=== PATIENT | male | born 1955 | race Caucasian/White ===

== ENCOUNTER 2019-12-08 17:10 | Emergency (ER) | payer MEDICARE, BC, MEDICAID, SELFPAY ==
[2019-12-08] VITALS (9 sets, daily range): BP systolic 141–179; BP diastolic 60–80; PULSE 79–87; RESP 14–18; TEMP 36.7; O2SAT 92–96; BMI 32.1
--- NOTE | 2019-12-08 17:20 | XRR_ITS ---
PROCEDURE INFORMATION: Exam: XR Chest, 1 View Exam date and time: 12/08/2019 5:50 PM Age: 64 years old Clinical indication: Dyspnea TECHNIQUE: Imaging protocol: XR of the chest Views: 1 view. COMPARISON: CR Chest 1 [place] [id number] 08/04/2018 11:06 AM FINDINGS: Lungs: There is bilateral upper lobe pulmonary fibrotic changes stable since prior examination. Low lung volumes are seen. The lungs are otherwise clear Pleural space: Unremarkable. No pleural effusion. No pneumothorax. Heart/Mediastinum: Unremarkable. No cardiomegaly. Bones/joints: There is widening between the 6th and 7th posterior rib on the right stable since prior Other findings: Comparison to prior examination similar findings is seen XR/XR chest 1V portable [id number] IMPRESSION: 1. Stable for bilateral upper lobe pulmonary fibrotic changes 2. Low lung volumes 3. Negative for acute abnormality. . 4. Right rib deformity stable since prior
[2019-12-08 17:31] LABS: Basophils # 0.1 10^3/uL (0.0-0.1); Basophils % 0.5 %; Eosinophils # 0.4 10^3/uL (0.0-0.8); Eosinophils % 3.2 %; Hematocrit 45.8 % (42.0-52.0); Hemoglobin 14.7 g/dL (11.7-16.6); Lymphocytes # 2.1 10^3/uL (0.8-4.8); Lymphocytes % 19.5 %; Mean Corpuscular HGB Conc 32.1 g/dL (30.0-36.0); Mean Corpuscular Hemoglobin 27.8 pg (28.0-34.0); Mean Corpuscular Volume 86.7 fL (80-94); Monocytes % 8.9 %; Neutrophils # 7.35 10^3/uL (1.8-7.7); Neutrophils % 67.5 %; Nucleated Red Blood Cells % 0 %; Platelet Count 220 10^3/cmm (130-400); Red Blood Count 5.28 10^6/uL (4.1-5.3); Red Cell Distribution Width 14.2 % (12.1-15.1); White Blood Count 10.9 10^3/uL (4.0-10.0)
[2019-12-08 17:45] LABS: ABG PH Result 7.43 (7.35-7.45); Arterial Blood Gas Hematocrit 46.4 % (42-52); Base Excess ABG 1.1 mmol/L (-2.0-2.0); Blood Gas Allen Test Pos; Blood Gas Sample Site Radial, left; Blood Gas Sample Type Arterial; HCO3 ABG 25.3 mmol/L (22-26); Oxygen Device NC; PO2 ABG 66.9 mmHg (80.0-100.0)
[2019-12-08 18:38] LABS: Alanine Aminotransferase 27 U/L (0-41); Alkaline Phosphatase 80 IU/L (40-130); Anion Gap 14.3 (5-19); Aspartate Amino Transferase 24 U/L (0-40); Blood Urea Nitrogen 12 mg/dL (8-23); Calcium 8.8 mg/dL (8.5-10.5); Carbon Dioxide 26 mmol/L (22-29); Chloride 100 mmol/L (98-107); Globulin 3.7 g/dL (1.3-4.6); Glomerular Filtration Rate 113.2 mL/min (90-130); Glucose 176 mg/dL (65-115); Osmolality Calculated 282 mOsm/kg (285-295); Potassium 4.3 mmol/L (3.5-5.1); Procalcitonin 0.05 ng/mL (0-0.5); Sodium 136 mmol/L (136-145); Total Bilirubin 0.2 mg/dL (0.15-1.2); Total Protein 7.7 g/dL (6.6-8.7)
--- NOTE | 2019-12-08 18:40 | W.ED.SOB ---
HPI - SOB/Dyspnea General: Chief Complaint: Shortness of Breath/Dyspnea Stated Complaint: COPD EXACERBATION Time Seen by Provider: 12/08/19 17:19 History of Present Illness: HPI Narrative: This patient is a 64-year-old male presenting with shortness of breath. He reports a history of COPD and has had part of his left lung removed. He also has diabetes and A. fib. He said for the past week he has been having episodes of shortness of breath. These are unprovoked and unassociated with other symptoms. He does get lightheaded but no chest pain. He does not feel any palpitations. He has a chronic cough which has been somewhat worse over the past week. No fevers. He denies any exposure to COVID. MD elicited complaint: shortness of breath Pertinent past history: COPD Onset (ago): week(s) (1) Timing: intermittent Severity: severe Exacerbating factors: nothing Relieving factors: nothing Known history of: COPD Associated symptoms: Deny abdominal pain, chest pain, fever(s), nausea or vomiting Review of Systems General: Reports: 10 or more systems reviewed and unremarkable except in HPI and below Const: Reports: fatigue and malaise; Denies: fever(s) or chills Eyes: Denies: change in vision ENMT: Denies: odynophagia Card: Denies: chest pain or swelling of feet/ankles Resp: Reports: dyspnea and productive cough; Denies: non-productive cough GI: Denies: abdominal pain, nausea or vomiting : Denies: flank pain Musc: Denies: neck pain or back pain Skin/Breast: Denies: rash Neuro: Denies: headache(s), numbness in extremities or weakness in extremities Reji/Lymph: Denies: easy bruising or easy bleeding PFS ED PFSH: Medical History Anticoagulation adequate with anticoagulant therapy Pradaxa Atrial fibrillation COPD (chronic obstructive pulmonary disease) Diabetes HTN (hypertension) Mass of upper lobe of left lung Obesity Oxygen dependent Tobacco abuse, in remission Surgical History H/O pneumonectomy Family History Mother Parkinson disease Father Cancer Social History Smoking and tobacco status: former smoker Alcohol intake: never Household members: spouse Marital status: service: No Current occupational status: disabled Physical Exam Const: COMMON NORMALS: no acute distress, patient oriented x3, no limitations and alert GENERAL APPEARANCE: cooperative and comfortable HENMT: HEAD & SCALP: normal to inspection FACE & SINUS: normal facial exam Eye: GENERAL EYE: appearance normal, both eyes and all related structures Neck/C-Spine: COMMON NORMALS: supple, no meningeal signs and no JVD Chest: COMMONS NORMALS: normal inspection of the chest Resp: COMMON NORMALS: normal respiratory effort and No use of accessory muscles AUSCULTATION: diminished lung sounds (Mildly, diffusely) Cardio: COMMON NORMALS: no JVD, regular rate, regular rhythm and No murmurs present (Cardio) RATE: regular rate RHYTHM: regular rhythm GI: COMMON NORMALS: Normal to inspection, nondistended, normoactive bowel sounds present, Soft to palpation and non-tender INSPECTION: Yes normal to inspection AUSCULTATION: Yes normoactive bowel sounds PALPATION: Yes Soft to palpation Back/Pelvis: COMMON NORMALS: thoracic and lumbar spine normal to inspection Extremity: COMMON NORMALS: normal to inspection Neuro: COMMON NORMALS: patient oriented x3, moves all extremities, no focal motor deficits and no sensory deficits noted SENSORIUM/ORIENTATION: Yes alert MENINGEAL SIGNS: Yes no meningeal signs Psych: COMMON NORMALS: mental status grossly normal, cooperative and normal affect Skin: COMMON NORMALS: no rashes or lesions noted and turgor normal GENERAL SKIN EXAM: no rashes or lesions noted and turgor normal Course ED course: Patient presented with episodic shortness of breath. He is completely asymptomatic on my evaluation. He did have some chest tightness with the symptoms. He does not have any significant wheezing on his lung exam initially. He was evaluated for COPD exacerbation or CHF. Clinically doubt pulmonary embolism. He remained stable and comfortable throughout the ED stay. He was given a nebulizer in the evening as he said that was his normal time to take 1 at home. His work-up was benign and as he was asymptomatic he was discharged back home. Vital Signs: Vital signs: Vital Signs Temperature 98.1 F 12/08/19 17:21 Pulse Rate 88 12/09/19 00:27 Respiratory Rate 18 12/09/19 00:27 Blood Pressure 141/70 12/09/19 00:27 Pulse Oximetry 64 L 12/09/19 00:27 MDM - SOB/Dyspnea Lab Data: Labs: Lab Results 12/08/19 12/08/19 12/08/19 Range/Units 16:21 16:21 17:34 WBC 10.9 H (4.0-10.0) 10^3/ uL RBC 5.28 (4.1-5.3) 10^6/u L Hgb 14.7 (11.7-16.6) g/dL Hct 45.8 (42.0-52.0) % MCV 86.7 (80-94) fL MCH 27.8 L (28.0-34.0) pg MCHC 32.1 (30.0-36.0) g/dL RDW 14.2 (12.1-15.1) % Plt Count 220 (130-400) 10^3/c mm MPV 12.0 H (7.4-10.4) fL Neut % (Auto) 67.5 % Lymph % (Auto) 19.5 % [place] % (Auto) 8.9 % Eos % (Auto) 3.2 % Baso % (Auto) 0.5 % Neut # (Auto) 7.35 (1.8-7.7) 10^3/u L Lymph # (Auto) 2.1 (0.8-4.8) 10^3/u L [place] # (Auto) 1.0 H (0.2-0.9) 10^3/u L Eos # (Auto) 0.4 (0.0-0.8) 10^3/u L Baso # (Auto) 0.1 (0.0-0.1) 10^3/u L Nucleated RBC % (a uto) 0 % Nucleated RBCs # 0.0 /100WBC Specimen Type Arterial Sample Site Radial, left ABG pH 7.43 (7.35-7.45) ABG pCO2 38.0 (35-45) mmHg ABG pO2 66.9 L (80.0-100.0) mmH g ABG HCO3 25.3 (22-26) mmol/L ABG Base Excess 1.1 (-2.0-2.0) mmol/ L Bob Test Pos Hematocrit 46.4 (42-52) % O2 Delivery Device Nc O2 Liters/Min 3.0 % FiO2 32.0 % Security Intelligence Analyst ID cak Sodium 136 (136-145) mmol/L Potassium 4.3 (3.5-5.1) mmol/L Chloride 100 (98-107) mmol/L Carbon Dioxide 26 (22-29) mmol/L Anion Gap 14.3 (5-19) BUN 12 (8-23) mg/dL Creatinine 0.7 (0.7-1.2) mg/dL GFR Calculation 113.2 (90-130) mL/min Glucose 176 H (65-115) mg/dL Calculated Osmolal ity 282 L (285-295) mOsm/k g Calcium 8.8 (8.5-10.5) mg/dL Total Bilirubin 0.2 (0.15-1.2) mg/dL AST 24 (0-40) U/L ALT 27 (0-41) U/L Alkaline Phosphata se 80 (40-130) IU/L Troponin T Baselin e (0-15) ng/L Troponin T 120 Min [place] (0-15) ng/L Delta Troponin T (0-10) ABS# Total Protein 7.7 (6.6-8.7) g/dL Albumin 4.0 (3.5-5.2) g/dL Globulin 3.7 (1.3-4.6) g/dL Procalcitonin 0.05 (0-0.5) ng/mL 12/08/19 12/08/19 Range/Units 20:37 22:48 WBC (4.0-10.0) 10^3/ uL RBC (4.1-5.3) 10^6/u L Hgb (11.7-16.6) g/dL Hct (42.0-52.0) % MCV (80-94) fL MCH (28.0-34.0) pg MCHC (30.0-36.0) g/dL RDW (12.1-15.1) % Plt Count (130-400) 10^3/c mm MPV (7.4-10.4) fL Neut % (Auto) % Lymph % (Auto) % [place] % (Auto) % Eos % (Auto) % Baso % (Auto) % Neut # (Auto) (1.8-7.7) 10^3/u L Lymph # (Auto) (0.8-4.8) 10^3/u L [place] # (Auto) (0.2-0.9) 10^3/u L Eos # (Auto) (0.0-0.8) 10^3/u L Baso # (Auto) (0.0-0.1) 10^3/u L Nucleated RBC % (a uto) % Nucleated RBCs # /100WBC Specimen Type Sample Site ABG pH (7.35-7.45) ABG pCO2 (35-45) mmHg ABG pO2 (80.0-100.0) mmH g ABG HCO3 (22-26) mmol/L ABG Base Excess (-2.0-2.0) mmol/ L Bob Test Hematocrit (42-52) % O2 Delivery Device O2 Liters/Min % FiO2 % Security Intelligence Analyst ID Sodium (136-145) mmol/L Potassium (3.5-5.1) mmol/L Chloride (98-107) mmol/L Carbon Dioxide (22-29) mmol/L Anion Gap (5-19) BUN (8-23) mg/dL Creatinine (0.7-1.2) mg/dL GFR Calculation (90-130) mL/min Glucose (65-115) mg/dL Calculated Osmolal ity (285-295) mOsm/k g Calcium (8.5-10.5) mg/dL Total Bilirubin (0.15-1.2) mg/dL AST (0-40) U/L ALT (0-41) U/L Alkaline Phosphata se (40-130) IU/L Troponin T Baselin e 13 (0-15) ng/L Troponin T 120 Min [place] 14.23 (0-15) ng/L Delta Troponin T 1.23 (0-10) ABS# Total Protein (6.6-8.7) g/dL Albumin (3.5-5.2) g/dL Globulin (1.3-4.6) g/dL Procalcitonin (0-0.5) ng/mL Discharge Plan Discharge Patient Disposition: Home Clinical Impression: COPD (chronic obstructive pulmonary disease) Qualifiers: COPD type: unspecified COPD Qualified Code(s): J44.9 - Chronic obstructive pulmonary disease, unspecified Condition: Stable Prescriptions: No Action diltiazem HCl 120 mg capsule,extended release 24hr 120 mg PO DAILY RF: 0 ipratropium-albuterol 0.5 mg-3 mg(2.5 mg base)/3 mL solution for nebulization 3 ml INHALATION Q6H PRNRF: 0 omeprazole 20 mg capsule,delayed release(DR/EC) 20 mg PO DAILY RF: 0 cetirizine 10 mg tablet 10 mg PO DAILY PRNRF: 0 albuterol sulfate [ProAir HFA] 90 mcg/actuation HFA aerosol inhaler 2 puff INHALATION Q6H PRNRF: 0 fluticasone propion-salmeterol [Advair Diskus] 250-50 mcg/dose blister with device 1 inh INHALATION Q12H RF: 0 aspirin [Aspir-81] 81 mg tablet,delayed release (DR/EC) 81 mg PO DAILY RF: 0 Pradaxa 150 mg capsule 150 mg PO BID RF: 0 glipizide 5 mg tablet 5 mg PO DAILY RF: 0 Lantus U-100 Insulin 100 unit/mL solution See Rx Instructions SUBCUT DAILY RF: 0 alprazolam 0.25 mg tablet 0.25 mg PO TID PRNRF: 0 Discharge Orders: Discharge Order (Routine); Ordered 12/08/19 Ordered By: Marjorie Jamil Referrals: Chanelle Perez, MARKET RESEARCH SENIOR PROJECT MANAGER-C [Primary Care Provider] - Discharge Diet: Usual diet Discharge Activity: Resume usual activity Patient Instructions: Chronic Obstructive Pulmonary Disease (ED) Activity Restrictions/Additional Instructions: Continue your regular medications and breathing treatments. Contact your primary care provider or development writer for further evaluation if you continue to have severe shortness of breath. Return to the emergency department if new or worse symptoms occur. Discharge Date/Time: 12/09/19 00:28 Coding Level of Care Code ED Industrial Economics Teacher for Lizbet Fwluanne Exam Comprehensive
--- NOTE | 2019-12-08 19:01 | PC.NURSE ---
report received from DG Simmons and care transferred to DG Juan
--- NOTE | 2019-12-08 20:07 | ECG_ITS ---
[facility] Test Date: 2019-12-08 Pat Name: Gamaliel Sigala Department: Room: Gender: Male Technical System Analyst: : 1955 Requested By: Marjorie Hernadnez Order Number: [id number] Juaquin MD: Scotty Richter M.D. Measurements Intervals [place] Rate: 79 P: 76 DC: 184 QRS: 48 QRSD: 102 T: 70 QT: 367 QTc: 422 Interpretive Statements SINUS RHYTHM Compared to ECG 12/08/2019 17:32:43 No significant changes Electronically Signed On 12-08-2019 20:13:58 CDT by Scotty Richter M.D. [id number]
[2019-12-08] MEDS: ipratropium-albuterol 3 mL Neb INHALATION (20:12)
[2019-12-08 21:10] LABS: Troponin(5th) Baseline 13 ng/L (0-15)
--- NOTE | 2019-12-08 22:07 | ECG_ITS ---
[facility] Test Date: 2019-12-08 Pat Name: Gamaliel Sigala Department: Room: Gender: Male Solid Waste Collector: : 1955 Requested By: Marjorie Hernandez Order Number: [id number] Juaquin MD: Scotty Richter M.D. Measurements Intervals [place] Rate: 84 P: 78 [place]: 183 QRS: 68 QRSD: 105 T: 66 QT: 363 QTc: 431 Interpretive Statements SINUS RHYTHM Compared to ECG 08/04/2018 18:31:59 T-wave abnormality no longer present Electronically Signed On 12-08-2019 20:16:42 CDT by Scotty Richter M.D. [email or web address] Groupuniversity of mississippi medical centerLetsBuy.comacmc healthcare systemHonglin Technology Group Limited/store/Om/[id number]
[2019-12-08 23:26] LABS: Troponin 5 2HR 14.23 ng/L (0-15); Troponin 5 2HR Delta 1.23 ABS# (0-10)
[2019-12-09 00:27] VITALS: BP 141/70; PULSE 88; RESP 18; O2SAT 64
== END 2019-12-09 00:28 | disposition home or self-care (01) ==
PROVIDERS: Emergency Provider Emergency Medicine; PCP Nurse Practitioner Family
DX: J44.9 Chronic obstructive pulmonary disease, unspecified (principal); Z79.82 Long term (current) use of aspirin; Z79.4 Long term (current) use of insulin; I48.91 Unspecified atrial fibrillation; E11.9 Type 2 diabetes mellitus without complications; I10 Essential (primary) hypertension; Z87.891 Personal history of nicotine dependence
CPT/HCPCS: 12345; 36415; 36600; 71045; 80053; 82803; 84145; 84484; 85025; 93005; 94640; 99284

== ENCOUNTER 2020-04-23 18:35 | Emergency (ER) | payer MEDICARE, MEDICAID, SELFPAY ==
[2020-04-23] VITALS (15 sets, daily range): BP systolic 120–168; BP diastolic 66–97; PULSE 80–88; RESP 13–25; TEMP 36.6–37.1; O2SAT 93–96; BMI 31.4
--- NOTE | 2020-04-23 18:42 | ECG_ITS ---
[facility] Test Date: 2020-04-23 Pat Name: Gamaliel Sigala Department: Room: Gender: Male Human Services Program Specialist: : 1955 Requested By: Toyin Roque Order Number: [id number] Juaquin MD: Ave Adams M.D. Measurements Intervals [place] Rate: 86 P: 72 OR: 185 QRS: 50 QRSD: 105 T: 66 QT: 365 QTc: 438 Interpretive Statements SINUS RHYTHM Compared to ECG 12/08/2019 20:21:06 No significant changes Electronically Signed On 04-24-2020 6:42:[address]ER[address]Y [address] Adams M.D. [email or web address]/[id number] f
--- NOTE | 2020-04-23 18:42 | XR_ITS ---
WS: [id number] XR chest 1V portable [id number] REASON FOR EXAM: cp FINDINGS: The chest is unchanged compared to 12/08/2019. There is extensive cystic change and irregular fibrotic change in the upper lungs with upward retraction of the hilar regions. Prominent area of chronic ate lectasis and scarring in the left lung apex. There is elevation of the right hemidiaphragm. No acute infiltrate identified. Mild tortuosity thoracic aorta without significant dilatation. No cardiac enlargement. Degenerative arthropathy in both shoulder joints most notably the right. Moderate degenerative spondy losis in the mid and lower thoracic spine. XR/XR chest 1V portable [id number] IMPRESSION: Stable abnormal chest with no acute abnormality identified.
--- NOTE | 2020-04-23 18:44 | W.ED.CHESTPA ---
HPI - Chest Pain General: Chief Complaint: Shortness of Breath/Dyspnea Stated Complaint: SOB, DIZZY Time Seen by Provider: 04/23/20 18:37 Source: patient and EMS Mode of arrival: EMS Limitations: no limitations History of Present Illness: HPI narrative: 65-year-old male has a history of chronic COPD. He states he has been having some sharp and pressure type chest pain in the center of his chest and left chest since Wednesday. He states is been constant nature. Denies any shortness of breath. He is always on 2 L. He denies any increasing cough or fever. Denies any worsening or improving factors. He denies any nausea or vomiting. Associated symptoms: Deny abdominal pain, dyspnea, fever(s), nausea or vomiting Review of Systems Const: Denies: fever(s), chills, body aches or change in appetite Eyes: Denies: blurry vision or eye discomfort ENMT: Denies: throat pain or dental pain Card: Reports: chest pain Resp: Denies: dyspnea GI: Denies: abdominal pain, nausea, vomiting or diarrhea : Denies: dysuria Musc: Denies: neck pain or back pain Skin/Breast: Denies: rash Neuro: Denies: headache(s) Psych: Denies: depression Reji/Lymph: Denies: easy bruising All/Imm: Denies: urticaria PFSH ED PFSH: Medical History (Updated 04/23/20 @ 21:48 by Toyin Roque MD) Anticoagulation adequate with anticoagulant therapy Pradaxa Atrial fibrillation COPD (chronic obstructive pulmonary disease) Diabetes HTN (hypertension) Mass of upper lobe of left lung Obesity Oxygen dependent Tobacco abuse, in remission Surgical History H/O pneumonectomy Family History Mother Parkinson disease Father Cancer Social History Smoking and tobacco status: former smoker Alcohol intake: never Household members: spouse Marital status: service: No Current occupational status: disabled Physical Exam Const: COMMON NORMALS: no acute distress, patient oriented x3 and healthy appearing HENMT: COMMON NORMALS: normocephalic and atraumatic HEAD & SCALP: normocephalic and atraumatic Eye: COMMON NORMALS: Equal, round and reactive pupils present and EOMs intact bilaterally PUPIL: Yes Equal, round and reactive pupils present Neck/C-Spine: COMMON NORMALS: full ROM and supple Chest: COMMONS NORMALS: normal inspection of the chest OTHER: tender over left chest Resp: COMMON NORMALS: normal respiratory effort, No retractions, No use of accessory muscles and clear to auscultation bilaterally AUSCULTATION: clear to auscultation bilaterally Cardio: COMMON NORMALS: regular rate, regular rhythm and No murmurs present (Cardio) RATE: regular rate RHYTHM: regular rhythm GI: COMMON NORMALS: Normal to inspection, nondistended, normoactive bowel sounds present, Soft to palpation, non-tender and no masses PALPATION: Yes Soft to palpation Extremity: COMMON NORMALS: normal to inspection and full ROM Neuro: COMMON NORMALS: patient oriented x3, moves all extremities and no focal motor deficits Psych: COMMON NORMALS: mental status grossly normal, Normal thought process present and cooperative THOUGHT PROCESS: Normal thought process present Skin: COMMON NORMALS: no rashes or lesions noted and no wounds GENERAL SKIN EXAM: no rashes or lesions noted Course Vital Signs: Vital signs: Vital Signs Temperature 98.7 F 04/23/20 18:45 Pulse Rate 81 04/23/20 21:35 Respiratory Rate 17 04/23/20 21:35 Blood Pressure 120/66 04/23/20 21:35 Pulse Oximetry 95 04/23/20 21:35 MDM - Chest Pain MDM Narrative: Medical decision making narrative: Patient presents with chest pain is atypical in nature. X-ray along with both EKGs and troponins are all normal. Patient's pain is been improved here. He is not requiring any more oxygen. He has no signs of pulmonary embolism or dissection. 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 He is to return if worsening. He understands agrees to plan. Lab Data: Labs: Lab Results 04/23/20 04/23/20 04/23/20 Range/Units 19:20 19:20 19:20 WBC 11.8 H (4.0-10.0) 10^3/ uL RBC 5.28 (4.1-5.3) 10^6/u L Hgb 14.7 (11.7-16.6) g/dL Hct 44.9 (42.0-52.0) % MCV 85.0 (80-94) fL MCH 27.8 L (28.0-34.0) pg MCHC 32.7 (30.0-36.0) g/dL RDW 14.1 (12.1-15.1) % Plt Count 228 (130-400) 10^3/c mm MPV 11.4 H (7.4-10.4) fL Neut % (Auto) 74.1 % Lymph % (Auto) 15.3 % [place] % (Auto) 7.5 % Eos % (Auto) 2.1 % Baso % (Auto) 0.5 % Neut # (Auto) 8.75 H (1.8-7.7) 10^3/u L Lymph # (Auto) 1.8 (0.8-4.8) 10^3/u L [place] # (Auto) 0.9 (0.2-0.9) 10^3/u L Eos # (Auto) 0.3 (0.0-0.8) 10^3/u L Baso # (Auto) 0.1 (0.0-0.1) 10^3/u L Nucleated RBC % (a uto) 0 % Nucleated RBCs # 0.0 /100WBC Sodium 134 L (136-145) mmol/L Potassium 4.4 (3.5-5.1) mmol/L Chloride 97 L (98-107) mmol/L Carbon Dioxide 27 (22-29) mmol/L Anion Gap 14.4 (5-19) BUN 15 (8-23) mg/dL Creatinine 0.5 L (0.7-1.2) mg/dL GFR Calculation 166.4 H (90-130) mL/min Glucose 226 H (65-115) mg/dL Calculated Osmolal ity 286 (285-295) mOsm/k g Calcium 9.1 (8.5-10.5) mg/dL Total Bilirubin 0.3 (0.15-1.2) mg/dL AST 27 (0-40) U/L ALT 32 (0-41) U/L Alkaline Phosphata se 85 (40-130) IU/L Troponin T Baselin e 10 (0-15) ng/L Troponin T 120 Min [place] (0-15) ng/L Delta Troponin T (0-10) ABS# Total Protein 7.5 (6.6-8.7) g/dL Albumin 3.8 (3.5-5.2) g/dL Globulin 3.7 (1.3-4.6) g/dL 04/23/20 Range/Units 21:04 WBC (4.0-10.0) 10^3/ uL RBC (4.1-5.3) 10^6/u L Hgb (11.7-16.6) g/dL Hct (42.0-52.0) % MCV (80-94) fL MCH (28.0-34.0) pg MCHC (30.0-36.0) g/dL RDW (12.1-15.1) % Plt Count (130-400) 10^3/c mm MPV (7.4-10.4) fL Neut % (Auto) % Lymph % (Auto) % [place] % (Auto) % Eos % (Auto) % Baso % (Auto) % Neut # (Auto) (1.8-7.7) 10^3/u L Lymph # (Auto) (0.8-4.8) 10^3/u L [place] # (Auto) (0.2-0.9) 10^3/u L Eos # (Auto) (0.0-0.8) 10^3/u L Baso # (Auto) (0.0-0.1) 10^3/u L Nucleated RBC % (a uto) % Nucleated RBCs # /100WBC Sodium (136-145) mmol/L Potassium (3.5-5.1) mmol/L Chloride (98-107) mmol/L Carbon Dioxide (22-29) mmol/L Anion Gap (5-19) BUN (8-23) mg/dL Creatinine (0.7-1.2) mg/dL GFR Calculation (90-130) mL/min Glucose (65-115) mg/dL Calculated Osmolal ity (285-295) mOsm/k g Calcium (8.5-10.5) mg/dL Total Bilirubin (0.15-1.2) mg/dL AST (0-40) U/L ALT (0-41) U/L Alkaline Phosphata se (40-130) IU/L Troponin T Baselin e (0-15) ng/L Troponin T 120 Min [place] 11.68 (0-15) ng/L Delta Troponin T 1.68 (0-10) ABS# Total Protein (6.6-8.7) g/dL Albumin (3.5-5.2) g/dL Globulin (1.3-4.6) g/dL Imaging Data^: CXR: Attestation: I personally reviewed and interpreted this imaging study as follows: My impression: No acute abnormality EKG Data^: EKG 1: Attestation: I personally reviewed and interpreted this EKG as follows: EKG interpretation date: 04/23/20 EKG interpretation time: 18:50 Interpretation: nsr hr [address] or t wave abnormalities qrs 105 qtc 408 EKG 2: Attestation: I personally reviewed and interpreted this EKG as follows: EKG interpretation date: 04/23/20 EKG interpretation time: 20:49 Interpretation: nsr hr [address] or t wave abnormalities qrs 102 qtc 407 Discharge Plan Discharge Patient Disposition: Home Clinical Impression: Chest pain Condition: Stable Prescriptions: No Action diltiazem HCl 120 mg capsule,extended release 24hr 120 mg PO DAILY RF: 0 ipratropium-albuterol 0.5 mg-3 mg(2.5 mg base)/3 mL solution for nebulization 3 ml INHALATION Q6H PRNRF: 0 omeprazole 20 mg capsule,delayed release(DR/EC) 20 mg PO DAILY RF: 0 cetirizine 10 mg tablet 10 mg PO DAILY PRNRF: 0 albuterol sulfate [ProAir HFA] 90 mcg/actuation HFA aerosol inhaler 2 puff INHALATION Q6H PRNRF: 0 fluticasone propion-salmeterol [Advair Diskus] 250-50 mcg/dose blister with device 1 inh INHALATION Q12H RF: 0 aspirin [Aspir-81] 81 mg tablet,delayed release (DR/EC) 81 mg PO DAILY RF: 0 Pradaxa 150 mg capsule 150 mg PO BID RF: 0 glipizide 5 mg tablet 5 mg PO DAILY RF: 0 Lantus U-100 Insulin 100 unit/mL solution See Rx Instructions SUBCUT DAILY RF: 0 alprazolam 0.25 mg tablet 0.25 mg PO TID PRNRF: 0 Discharge Orders: Discharge ED (Routine); Ordered 04/23/20 Ordered By: Toyin Roque Referrals: Chanelle Perez FNP-C [Primary Care Provider] - 1-3 days Discharge Diet: Advance as tolerated Discharge Activity: Resume usual activity Patient Instructions: Chest Pain (ED) Coding Level of Care Code ED Electronic Engineering Technician for Chg Fwd Exam Comprehensive
--- NOTE | 2020-04-23 19:38 | PC.NURSE ---
Received pt from Previous RN. Pt just arrived
[2020-04-23 19:53] LABS: Basophils # 0.1 10^3/uL (0.0-0.1); Basophils % 0.5 %; Eosinophils # 0.3 10^3/uL (0.0-0.8); Eosinophils % 2.1 %; Hematocrit 44.9 % (42.0-52.0); Hemoglobin 14.7 g/dL (11.7-16.6); Lymphocytes # 1.8 10^3/uL (0.8-4.8); Lymphocytes % 15.3 %; Mean Corpuscular HGB Conc 32.7 g/dL (30.0-36.0); Mean Corpuscular Hemoglobin 27.8 pg (28.0-34.0); Mean Platelet Volume 11.4 fL (7.4-10.4); Monocytes # 0.9 10^3/uL (0.2-0.9); Monocytes % 7.5 %; Neutrophils # 8.75 10^3/uL (1.8-7.7); Neutrophils % 74.1 %; Nucleated Red Blood Cells % 0 %; Platelet Count 228 10^3/cmm (130-400); Red Blood Count 5.28 10^6/uL (4.1-5.3); Red Cell Distribution Width 14.1 % (12.1-15.1); White Blood Count 11.8 10^3/uL (4.0-10.0)
[2020-04-23 20:02] LABS: Alanine Aminotransferase 32 U/L (0-41); Albumin Level 3.8 g/dL (3.5-5.2); Alkaline Phosphatase 85 IU/L (40-130); Blood Urea Nitrogen 15 mg/dL (8-23); Calcium 9.1 mg/dL (8.5-10.5); Carbon Dioxide 27 mmol/L (22-29); Chloride 97 mmol/L (98-107); Globulin 3.7 g/dL (1.3-4.6); Glomerular Filtration Rate 166.4 mL/min (90-130); Glucose 226 mg/dL (65-115); Osmolality Calculated 286 mOsm/kg (285-295); Sodium 134 mmol/L (136-145); Total Bilirubin 0.3 mg/dL (0.15-1.2); Total Protein 7.5 g/dL (6.6-8.7)
[2020-04-23 20:04] LABS: Troponin(5th) Baseline 10 ng/L (0-15)
[2020-04-23 20:06] LABS: Anion Gap 14.4 (5-19); Aspartate Amino Transferase 27 U/L (0-40); Potassium 4.4 mmol/L (3.5-5.1)
--- NOTE | 2020-04-23 20:42 | ECG_ITS ---
[facility] Test Date: 2020-04-23 Pat Name: Gamaliel Sigala Department: Room: Gender: Male Bench Hand Machine: : 1955 Requested By: Toyin Roque Order Number: [id number] Juaquin MD: Ave Adams M.D. Measurements Intervals [place] Rate: 79 P: 65 [place]: 188 QRS: 49 QRSD: 102 T: 69 QT: 373 QTc: 428 Interpretive Statements SINUS RHYTHM NONSPECIFIC T-WAVE ABNORMALITY Compared to ECG 12/08/2019 20:21:06 T-wave abnormality now present Electronically Signed On 04-23-2020 21:06:57 DATA MODELING SPECIALIST by Ave Adams M.D. [email or web address] [facility] [email or web address]/[id number]
--- NOTE | 2020-04-23 20:54 | PC.NURSE ---
Okayed by provider to have water. Provided pt with water
--- NOTE | 2020-04-23 21:11 | PC.NURSE ---
pt c/o about his bottom hurting in this bed.
--- NOTE | 2020-04-23 21:13 | PC.NURSE ---
waiting for results, recent Trop drawn and sent
[2020-04-23 21:34] LABS: Troponin 5 2HR 11.68 ng/L (0-15); Troponin 5 2HR Delta 1.68 ABS# (0-10)
--- NOTE | 2020-04-23 21:46 | PC.NURSE ---
called to check on pt and get update. Pt to received RT TX and then d/c. stated she is 1.5 hours away.
--- NOTE | 2020-04-23 21:47 | PC.NURSE ---
Provider at bedside
== END 2020-04-23 23:30 | disposition home or self-care (01) ==
PROVIDERS: Emergency Provider Emergency Medicine; PCP Nurse Practitioner Family
DX: R07.9 Chest pain, unspecified (principal); Z79.82 Long term (current) use of aspirin; Z79.4 Long term (current) use of insulin; I48.91 Unspecified atrial fibrillation; J44.9 Chronic obstructive pulmonary disease, unspecified; E11.9 Type 2 diabetes mellitus without complications; I10 Essential (primary) hypertension; Z99.81 Dependence on supplemental oxygen; Z87.891 Personal history of nicotine dependence
CPT/HCPCS: 12345; 71045; 80053; 84484; 85025; 93005; 94640; 99283; J7611

== ENCOUNTER → 2020-05-23 13:42 | Outpatient (BNVA) | payer MEDICARE, MEDICAID, SELFPAY | PROVIDERS: Visit Provider Internal Medicine Critical Care Medicine | DX: Z20.828 Contact with and (suspected) exposure to other viral communicable diseases (principal); J44.9 Chronic obstructive pulmonary disease, unspecified | CPT/HCPCS: 87635 ==

== ENCOUNTER → 2020-07-25 11:37 | Outpatient (BNVA) | payer BC, MEDICAID, SELFPAY | PROVIDERS: PCP Nurse Practitioner Family; Visit Provider Nurse Practitioner Family | DX: E11.9 Type 2 diabetes mellitus without complications (principal); I10 Essential (primary) hypertension; Z13.6 Encounter for screening for cardiovascular disorders; Z76.89 Persons encountering health services in other specified circumstances; J44.9 Chronic obstructive pulmonary disease, unspecified; E55.9 Vitamin D deficiency, unspecified; Z12.11 Encounter for screening for malignant neoplasm of colon; Z79.4 Long term (current) use of insulin | CPT/HCPCS: 80053; 80061; 81003; 83036; 83735; 84100; 84439; 84443; 84481; 85025 ==

== ENCOUNTER → 2020-08-06 12:41 | Outpatient (BNVA) | payer MEDICAID, SELFPAY | PROVIDERS: PCP Nurse Practitioner Family; Visit Provider Internal Medicine Critical Care Medicine | DX: J96.11 Chronic respiratory failure with hypoxia (principal); Z20.822 Contact with and (suspected) exposure to COVID-19 | CPT/HCPCS: 87635 ==

== ENCOUNTER 2020-08-12 09:46 | Outpatient (CLI) | payer MEDICARE, MEDICAID, SELFPAY ==
--- NOTE | 2020-08-12 10:05 | CT_ITS ---
WS: [id number] LDCT LUNG CANCER SCREENING HISTORY: HX OF TOBACCO USE TECHNIQUE: Axial imaging performed from the apices to 1 cm below the costophrenic angles. Coronal and sagittal reformats are submitted with axial MIP series. All CT scans at [facility] use at least one of these dose optimization techniques: automated exposure control; mA and/or kV adjustment per patient size (includes targeted exams where dose is matched to clinical indication); or iterativ e reconstruction. DLP: 61.31 mGy.cm DIvol: 1.58 mGy COMPARISON: 08/04/2018 Diagnostic quality: Satisfactory Lung Nodules: New 10 mm nodule with a tiny central cavitation at the RIGHT lung base, image 23 of ser ies 3. This nodule is surrounded by inflammatory changes at the lung bases. Bilateral post inflammato ry changes are evident. No endobronchial lesions. Lungs: Severe emphysema. Paraseptal and centrilobular emphysema. The scarring and fibrosis and nodula rity at the lung apices appear similar to 08/04/2018. Area of fibrosis and distortion with nodularity best seen on image 68 of series 3 is similar to prior study. Heart: Normal size heart. Coronary artery calcifications moderate. Other findings: Mild atherosclerosis aorta. Calcifications extend into the proximal great vessels. Sm all mediastinal and hilar lymph nodes. CT/CT lung screening [id number] IMPRESSION: LUNG-RADS: 4A-Probably Suspicious FOLLOW UP: 3 Month LDCT OTHER FINDINGS (S MODIFIER): None. Recommend low-dose CT follow-up in 3 months to reevaluate the inflammatory graves ges at the lung bases and the suspicious nodule in the RIGHT lower lobe.
--- NOTE | 2020-08-12 10:15 | PFTS_ITS ---
Date of Study:08/12/20 Date of Dictation: 08/16/2020 MECHANICS: Prebronchodilator forced vital capacity (FVC) is normal. Prebronchodilator forced expiratory volume in one second (FEV1) is moderately reduced to 66%. FEV1/FVC is reduced to 57. Postbronchodilator study not performed FLOW VOLUME LOOP: Sloping of expiratory limb suggestive of airway obstruction. LUNG VOLUMES: Not measured DIFFUSING CAPACITY FOR CARBON MONOXIDE: Moderately reduced 46% . INTERPRETATION: The spirometry consistent with moderate obstructive ventilatory defect. Lung volumes not measured. There is moderately reduced gas transfer. Please correlate clinically. MTDD
--- NOTE | 2020-08-12 13:40 | PFTS_ITS ---
Date of Study:08/12/20 Date of Dictation: 08/13/2020 MECHANICS: Postbronchodilator forced vital capacity (FVC) is normal. Postbronchodilator forced expiratory volume in one second (FEV1) is moderately reduced 77% FEV1/FVC is reduced. -There is no significant response to bronchodilators. FLOW VOLUME LOOP: Sloping of expiratory limb suggestive of airway obstruction . LUNG VOLUMES: Total lung capacity (TLC) is normal. Residual volume (RV) is increased suggestive of moderate air trapping. DIFFUSING CAPACITY FOR CARBON MONOXIDE: Mildly reduced 69% . INTERPRETATION: The pulmonary function tests are consistent with moderate obstructive ventilatory defect. Lung volumes suggestive of moderate air trapping. There is mild gas transfer defect. There is no significant bronchodilator response. Please correlate clinically. MTDD
== END 2020-08-12 09:47 | disposition home or self-care (01) ==
LOC: RT 09:52
PROVIDERS: PCP Nurse Practitioner Family; Visit Provider Internal Medicine Critical Care Medicine
DX: J44.9 Chronic obstructive pulmonary disease, unspecified (principal); Z12.2 Encounter for screening for malignant neoplasm of respiratory organs; Z87.891 Personal history of nicotine dependence; I70.0 Atherosclerosis of aorta; R91.1 Solitary pulmonary nodule
CPT/HCPCS: 71271; 94010; 94729

== ENCOUNTER → 2020-08-15 09:23 | Outpatient (BNVA) | payer MEDICARE, MEDICAID, SELFPAY | PROVIDERS: PCP Nurse Practitioner Family; Referring Provider Nurse Practitioner Family; Visit Provider Internal Medicine | DX: E11.9 Type 2 diabetes mellitus without complications (principal); Z79.4 Long term (current) use of insulin; E78.5 Hyperlipidemia, unspecified | CPT/HCPCS: 99204 ==

== ENCOUNTER → 2020-11-13 11:30 | Outpatient (BNVA) | payer MEDICARE, MEDICAID, SELFPAY | PROVIDERS: PCP Nurse Practitioner Family; Visit Provider Nurse Practitioner Family | DX: J22 Unspecified acute lower respiratory infection (principal); H61.23 Impacted cerumen, bilateral; Z20.822 Contact with and (suspected) exposure to COVID-19 | CPT/HCPCS: 87635 ==

== ENCOUNTER → 2021-02-03 09:05 | Outpatient (BNVA) | payer MEDICARE, MEDICAID, SELFPAY | PROVIDERS: PCP Nurse Practitioner Family; Visit Provider Internal Medicine | DX: E11.9 Type 2 diabetes mellitus without complications (principal); Z79.4 Long term (current) use of insulin | CPT/HCPCS: 83036 ==

== ENCOUNTER 2021-02-18 09:48 | Outpatient (CLI) | payer MEDICARE, MEDICAID, SELFPAY ==
--- NOTE | 2021-02-18 10:15 | CT_ITS ---
WS: [id number] CT scan of the chest without IV contrast, additional two-dimensional coronal and sagittal reconstruct ion was performed. 02/18/2021 Clinical Data: Pulmonary Nodule Comparison: CT chest, 08/12/2020. DLP: 744.[address] scans at [facility] use at least one of these dose optimization techniques: automated e xposure control; mA and/or kV adjustment per patient size (includes targeted exams where dose is matc hed to clinical indication); or iterative reconstruction. Findings: The right lower lobe nodule seen on screening CT is not evident on the current examination. There are chronic interstitial changes at both lung bases. The superior lungs show bullous emphysema and inter stitial fibrosis. No masses or effusions are seen. No pneumonia or pneumothorax is present. The heart size is normal wi th no pericardial effusion. Coronary artery calcification is present. The pulmonary arterial system a nd thoracic aorta demonstrate no abnormalities or dilatations. There is no axillary or significant me diastinal adenopathy. The upper abdomen shows no change from before. CT/CT chest wo con [id number] Impression: 1. No definite right lower lobe nodule is seen to correspond to the finding on the CT lung screening of 08/12/2020. 2. Chronic interstitial change in emphysematous change noted. 3. Return to CT lung screening program.
== END 2021-02-18 09:49 | disposition home or self-care (01) ==
PROVIDERS: PCP Nurse Practitioner Family; Visit Provider Internal Medicine Critical Care Medicine
DX: R91.1 Solitary pulmonary nodule (principal)
CPT/HCPCS: 71250

== ENCOUNTER → 2021-09-26 09:26 | Outpatient (BNVA) | payer MEDICARE, MEDICAID, SELFPAY | PROVIDERS: PCP Nurse Practitioner Family; Visit Provider Internal Medicine Critical Care Medicine | DX: J44.9 Chronic obstructive pulmonary disease, unspecified (principal); J96.11 Chronic respiratory failure with hypoxia; R91.1 Solitary pulmonary nodule; Z87.891 Personal history of nicotine dependence; Z99.81 Dependence on supplemental oxygen; K21.9 Gastro-esophageal reflux disease without esophagitis; I10 Essential (primary) hypertension | CPT/HCPCS: 99214 ==

== ENCOUNTER → 2021-12-25 14:20 | Outpatient (BNVA) | payer MEDICARE, MEDICAID, SELFPAY | PROVIDERS: PCP Nurse Practitioner Family; Visit Provider Internal Medicine | DX: E11.649 Type 2 diabetes mellitus with hypoglycemia without coma (principal); E78.5 Hyperlipidemia, unspecified; E16.0 Drug-induced hypoglycemia without coma; T38.3X5A Adverse effect of insulin and oral hypoglycemic [antidiabetic] drugs, initial encounter; I48.91 Unspecified atrial fibrillation; I10 Essential (primary) hypertension; Z99.81 Dependence on supplemental oxygen; Z79.01 Long term (current) use of anticoagulants; J44.9 Chronic obstructive pulmonary disease, unspecified; Z87.891 Personal history of nicotine dependence; Z79.84 Long term (current) use of oral hypoglycemic drugs; Z79.4 Long term (current) use of insulin | CPT/HCPCS: 99214 ==

== ENCOUNTER 2022-02-18 10:19 | Outpatient (CLI) | payer MEDICARE, MEDICAID, SELFPAY ==
--- NOTE | 2022-02-18 11:00 | CT_ITS ---
WS: [id number] LDCT LUNG CANCER SCREENING TECHNIQUE: Noncontrast CT of the chest with coronal and sagittal reformatted images. CLINICAL INFORMATION: Lung cancer screenin COMPARISON: CT chest February 18, 2021 DLP: 82.99 mGy.cm DIvol: Mean CTDIvol: 1.60 (mGy) All CT scans at [facility] use at least one of these dose optimization techniques: automat ed exposure control; mA and/or kV adjustment per patient size (includes targeted exams where dose is matched to clinical indication); or iterative reconstruction. FINDINGS:Advanced chronic emphysematous changes. Fibrosis in the lung apices. New slightly spiculated irregular LEFT hilar opacity abutting the LEFT distal main stem bronchus extending into the LEFT upp er lobe. This measures approximately 3.6 x 3.1 CCM. This is new from the prior examination and may be infectious or inflammatory however neoplasm not excluded. Recommend either short-term interval follo w-up in 3 months, PET CT, or bronchoscopy. Fibrotic appearing inflammatory changes in the RIGHT middle lobe anteriorly. Fibrosis lung apices wit h pleural thickening is similar in appearance. Patchy infiltrates in the RIGHT lower lobe with nodula rity are similar in appearance to previous but appear progressed. Traction bronchiectasis. Slightly ectatic ascending thoracic aorta measuring 3.6 cm unchanged. No anterior mediastinal or rosaura r lymphadenopathy. No axillary lymphadenopathy. Small esophageal hiatal hernia. Adrenal glands are normal. Splenic artery calcification. Cholelithias is. Mild thoracic curve. Mild thoracic kyphosis. Ankylosis thoracic spine. CT/CT lung screening [id number] IMPRESSION: New irregular slightly spiculated LEFT hilar lesion measuring 3.6 x 3.1 CM.This is new from the prior examination and may be infectious or inflamm atory however neoplasm not excluded. Recommend either short-term interval follo w-up CT in 3 months or further evaluation with PET/CT. Bronchoscopy can also be considered. LUNG-RADS: 4A-Probably Suspicious FOLLOW UP: See Report
== END 2022-02-18 10:20 | disposition home or self-care (01) ==
LOC: RAD 10:20
PROVIDERS: PCP Nurse Practitioner Family; Visit Provider Internal Medicine Critical Care Medicine
DX: Z12.2 Encounter for screening for malignant neoplasm of respiratory organs (principal); Z87.891 Personal history of nicotine dependence
CPT/HCPCS: 71271

== ENCOUNTER → 2022-02-26 10:07 | Outpatient (BNVA) | payer MEDICARE, MEDICAID, SELFPAY | PROVIDERS: PCP Nurse Practitioner Family; Visit Provider Internal Medicine Pulmonary Disease | DX: J44.9 Chronic obstructive pulmonary disease, unspecified (principal); R91.1 Solitary pulmonary nodule; M06.9 Rheumatoid arthritis, unspecified; J96.11 Chronic respiratory failure with hypoxia | CPT/HCPCS: 99214 ==

== ENCOUNTER → 2022-03-25 10:20 | Outpatient (BNVA) | payer MEDICARE, MEDICAID, SELFPAY | PROVIDERS: PCP Nurse Practitioner Family; Visit Provider Family Medicine | DX: E11.9 Type 2 diabetes mellitus without complications (principal); Z79.4 Long term (current) use of insulin; E66.9 Obesity, unspecified | CPT/HCPCS: 80053; 80061; 83036; 84443; 85025 ==

== ENCOUNTER 2022-04-22 11:43 | Emergency (ER) | payer MEDICARE, MEDICAID, SELFPAY ==
[2022-04-22 12:23] VITALS: RESP 18; O2SAT 95; BMI 29.8
--- NOTE | 2022-04-22 12:31 | XR_ITS ---
WS: [id number] EXAMINATION: XR chest 1V portable [id number] REASON FOR EXAM: cough and sob COMPARISON: 04/23/2020. ORDER DATE: 04/22/2022 12:37 PM TECHNIQUE: A single, portable frontal chest x-ray was obtained. X-RAY FINDINGS: There is extensive cystic change and irregular apical pleural thickening with fibrotic change in the upper lungs resulting in upward retraction of the hilar regions. Additionally there is a increase in reticular nodular opacity in the right upper lobe. Small spiculated density im mediately lateral to the right hilum 3 x 10 mm in outline new from previous. Prominent ill-defined fo ann marie density in the aortopulmonary window on the left Possibly new compared with previous. Mild tortuosity thoracic aorta without significant dilatation. N o cardiac enlargement. Degenerative arthropathy in both shoulder joints most notably the right. Moderate degenerative spondylosis in the mid and lower thoracic spine. XR/XR chest 1V portable [id number] IMPRESSION: Diffuse changes of emphysema with possible development and/or increase in NSIP/ interstitial lung disease new patchy New reticulonodular infiltrate in the right upper lobe, recommend screening for TB New spiculated nodular density just lateral to the left hilum 15 mm nodular density in the left AP window possibly new Recommend CT imaging correlation.
[2022-04-22 14:26] VITALS: BP 131/62; PULSE 85; RESP 16; O2SAT 95; O2SAT 96
[2022-04-22 14:53] LABS: SARS Covid-2 Antigen positive (Negative)
--- NOTE | 2022-04-22 14:56 | W.ED.COVID ---
HPI - COVID General: Chief Complaint: COVID symptoms Stated Complaint: SOB, COVID+ Time Seen by Provider: 04/22/22 12:53 Triage information: Has fever, cough or shortness of breath. No known COVID + exposure last 14 days History of Present Illness: Patient is a 67-year-old male comes to the ED with a cough. Patient states that his tested positive for COVID several days ago. Patient says his symptoms first started approximately 3 days ago. Patient has a history of COPD and is on 3 L of oxygen at home and has not had to increase his oxygen since onset of symptoms. Endorses having body aches and chills. Denies any other symptoms such as chest pains or fevers. COVID 19 common symptoms: negative fever(s), chills, non-productive cough, productive cough, dyspnea, fatigue, headache(s), throat pain, nasal congestion, nausea, vomiting or diarrhea COVID 19 other sytmptoms: negative chest pain COVID Results: SARS-CoV-2 Antigen (Rapid) positive (Negative) 04/22/22 14:33 SARS-CoV-2 RNA (RT-PCR) Not detected (NOT DETECTED) 11/13/20 11:30 Nasal/Oral Coronavirus 2019 PCR Not detected 08/06/20 12:41 Review of Systems Const: Denies: fever(s), chills or fatigue Eyes: Denies: change in vision or eye discomfort ENMT: Denies: throat pain, odynophagia, nasal discharge or nasal congestion Card: Denies: chest pain, palpitations, edema, swelling of feet/ankles, dyspnea on exertion or orthopnea Resp: Denies: dyspnea, productive cough or non-productive cough GI: Denies: abdominal pain, nausea, vomiting, diarrhea, constipation or hematochezia : Denies: flank pain, difficulty urinating, dysuria or hematuria Musc: Denies: neck pain, back pain or extremity swelling Skin/Breast: Denies: rash or new lesions Neuro: Denies: headache(s), numbness in extremities or weakness in extremities PFS ED PFSH: Medical History Anticoagulation adequate with anticoagulant therapy Pradaxa Atrial fibrillation Bilateral impacted cerumen Chronic respiratory failure with hypoxia COPD (chronic obstructive pulmonary disease) Diabetes Exposure to COVID-19 virus Generalized weakness GERD (gastroesophageal reflux disease) HTN (hypertension) Hypertension screen Lower respiratory infection Mass of upper lobe of left lung Nicotine addiction Obesity Oxygen dependent Rheumatoid arthritis RLS (restless legs syndrome) Tobacco abuse, in remission UTI symptoms Vitamin D deficiency Surgical History H/O pneumonectomy [address] Leos Hx of tracheostomy Family History Mother Parkinson disease Father Cancer Social History Smoking and tobacco status: never smoked Quit status (tobacco): has quit using tobacco Year quit tobacco: 2013 - 2PPD x 45 Years Second hand smoke exposure: No Smoking risk assessment/counseling performed?: No Alcohol intake: never Desire information about alcohol rehabilitation?: No Counseling given: No Desire information about substance/drug rehabilitation?: No Counseling given: No Lives independently: Yes Household members: spouse Marital status: service: No Current occupational status: disabled History of recent travel: No Physical Exam Const: COMMON NORMALS: no acute distress, patient oriented x3 and alert GENERAL APPEARANCE: cooperative and comfortable HENMT: COMMON NORMALS: normocephalic HEAD & SCALP: normocephalic MOUTH: Normal oral and palatal mucosa present THROAT: posterior oropharynx normal and uvula midline Neck/C-Spine: COMMON NORMALS: supple GENERAL: Yes normal visual inspection Resp: COMMON NORMALS: normal respiratory effort, No retractions, No use of accessory muscles and clear to auscultation bilaterally AUSCULTATION: clear to auscultation bilaterally Cardio: COMMON NORMALS: regular rate, regular rhythm, S1 normal heart sound present, S2 normal heart sound present, No gallops present (Cardio), No clicks present (Cardio), No murmurs present (Cardio) and Peripheral pulses 2+ throughout RATE: regular rate RHYTHM: regular rhythm HEART SOUNDS: S1 normal heart sound present and S2 normal heart sound present PERIPHERAL PULSES: Peripheral pulses 2+ throughout GI: COMMON NORMALS: Normal to inspection, nondistended, normoactive bowel sounds present, Soft to palpation, non-tender and no masses PALPATION: Yes Soft to palpation : COMMON NORMALS: Yes no CVA tenderness BLADDER/KIDNEY EXAM: Yes no CVA tenderness Back/Pelvis: COMMON NORMALS: no CVA tenderness Neuro: COMMON NORMALS: patient oriented x3 SENSORIUM/ORIENTATION: Yes alert GAIT: Yes Normal gait present Skin: GENERAL SKIN EXAM: dry skin Course Vital Signs: Vital signs: Vital Signs Pulse Rate 85 04/22/22 14:26 Respiratory Rate 16 04/22/22 14:26 Blood Pressure 131/62 04/22/22 14:26 Pulse Oximetry 95 04/22/22 14:26 Oxygen Delivery Me thod 04/22/22 14:26 Oxygen Flow Rate 3 04/22/22 14:26 MDM - COVID Medical Decision Making Patient is a 67-year-old male comes to the ED with a cough. Patient states that his tested positive for COVID several days ago. Patient says his symptoms first started approximately 3 days ago. Patient has a history of COPD and is on 3 L of oxygen at home and has not had to increase his oxygen since onset of symptoms. Endorses having body aches and chills. Denies any other symptoms such as chest pains or fevers. Vitals are stable. Exam of patient was benign. He appears nontoxic in no acute distress and is on 3 L of oxygen here in the ED which is his typical O2 level. Chest x-ray shows no new pneumonia but highlights in the spiculated masses which were seen on CT previously. Patient sees Dr. Croft for his COPD and lung mass findings. Influenza negative and COVID was positive. Patient stable for discharge home and diagnosed with COVID-19 and sent home with a prescription for levofloxacin and a Medrol Dosepak. Told to follow-up with his PCP within the next couple days for reevaluation. Patient understood and agreed with plan. Lab Data Radiology Impressions Chest X-Ray 04/22/22 12:31 IMPRESSION: Diffuse changes of emphysema with possible development and/or increase in NSIP/interstitial lung disease new patchy New reticulonodular infiltrate in the right upper lobe, recommend screening for TB New spiculated nodular density just lateral to the left hilum 15 mm nodular density in the left AP window possibly new Recommend CT imaging correlation. Laboratory Results Influenza Type A Ag negative (Negative) 04/22/22 14:33 Influenza Type B Ag negative (Negative) 04/22/22 14:33 SARS-CoV-2 Ag (Rapid) positive (Negative) 04/22/22 14:33 SARS-CoV-2 Antigen (Rapid) positive (Negative) 04/22/22 14:33 SARS-CoV-2 RNA (RT-PCR) Not detected (NOT DETECTED) 11/13/20 11:30 Nasal/Oral Coronavirus 2019 PCR Not detected 08/06/20 12:41 Discharge Plan Discharge Patient Disposition: Home Clinical Impression: COVID-19 Condition: Stable Prescriptions: New levofloxacin 500 mg tablet 500 mg PO DAILY 6 Days Qty: 6 0RF Medrol (Yonas) 4 mg tablets,dose pack See Rx Instructions .ROUTE .COMPLEX Qty: 21 0RF Rx Instructions: orally per package directions No Action cbd gummies PO lidocaine HCl [Xylocaine] 10 mg/mL (1 %) solution 1 ml IM ONCE Qty: 1 0RF carbamide peroxide [Debrox] 6.5 % drops 5 drp otic (ear) BID 4 Days Qty: 18 0RF (DME) ReliOn Prime Test Strips Strip See Rx Instructions .Route Qty: 300 3RF Rx Instructions: As directed ciprofloxacin-dexamethasone [Ciprodex] 0.3-0.1 % drops,suspension 4 drp otic (ear) BID 7 Days Qty: 7.5 0RF prednisone 20 mg tablet 10 mg PO BID Krill Oil PO calcium with vit D PO potassium PO vitamin c PO zinc PO insulin aspart U-100 [Novolog Flexpen U-100 Insulin] 100 unit/mL (3 mL) insulin pen 10 unit SUBCUT TID Qty: 30 3RF Rx Instructions: Inject 10 units three times a day with meals. (DME) FreeStyle Dannie 2 Sensor Kit See Rx Instructions .Route Qty: 6 3RF Rx Instructions: Change every 14 days. (DME) blood sugar diagnostic Strip See Rx Instructions .ROUTE .MEDSUPPLY Qty: 120 5RF Rx Instructions: As directed 4 times daily cetirizine 10 mg tablet See Rx Instructions .ROUTE .COMPLEX Qty: 30 5RF Dose Instruction: TAKE 1 TABLET BY MOUTH EVERY DAY Rx Instructions: TAKE 1 TABLET BY MOUTH EVERY DAY (DME) pen needle, diabetic [1st Tier Unifine Pentips] 32 gauge x 5/32 needle See Rx Instructions .Route Qty: 100 2RF Rx Instructions: As directed twice daily miscellaneous medical supply Kit See Rx Instructions miscellaneous .COMPLEX Qty: 1 0RF Rx Instructions: Acapella device omeprazole 20 mg capsule,delayed release(DR/EC) 20 mg PO DAILY Qty: 30 5RF Trelegy Ellipta 200-62.5-25 mcg blister with device See Rx Instructions .ROUTE .COMPLEX Qty: 60 6RF Dose Instruction: INHALE 1 PUFF BY MOUTH DAILY Rx Instructions: INHALE 1 PUFF BY MOUTH DAILY glipizide 5 mg tablet See Rx Instructions .ROUTE .COMPLEX Qty: 90 0RF Dose Instruction: TAKE 1/2 TABLET BY MOUTH TWICE DAILY Rx Instructions: TAKE 1/2 TABLET BY MOUTH TWICE DAILY insulin glargine [Lantus Solostar U-100 Insulin] 100 unit/mL (3 mL) insulin pen 54 unit SUBCUT .QHS Qty: 15 3RF Rx Instructions: Inject 54 units subcut every evening. ipratropium-albuterol 0.5 mg-3 mg(2.5 mg base)/3 mL solution for nebulization See Rx Instructions .ROUTE .COMPLEX Qty: 540 4RF Dose Instruction: USE 3 ML VIA NEBULIZER EVERY 4 HOURS NEEDED FOR SHORTNESS OF BREATH OR WHEEZING Rx Instructions: USE 3 ML VIA NEBULIZER EVERY 4 HOURS NEEDED FOR SHORTNESS OF BREATH OR WHEEZING (DME) FreeStyle Dannie 14 Day Sensor Kit See Rx Instructions .Route Qty: 1 3RF Rx Instructions: As directed (DME) FreeStyle Dannie 2 [place] Misc See Rx Instructions .Route Qty: 1 0RF Rx Instructions: Check BS 4-6 times a day. albuterol sulfate 90 mcg/actuation HFA aerosol inhaler See Rx Instructions .ROUTE .COMPLEX Qty: 8.5 0RF Dose Instruction: INHALE 2 PUFFS BY MOUTH EVERY 6 HOURS NEEDED FOR SHORTNESS OF BREATH OR WHEEZING Rx Instructions: INHALE 2 PUFFS BY MOUTH EVERY 6 HOURS NEEDED FOR SHORTNESS OF BREATH OR WHEEZING Pradaxa 150 mg capsule See Rx Instructions .ROUTE .COMPLEX Qty: 180 0RF Dose Instruction: TAKE ONE CAPSULE BY MOUTH TWICE DAILY Rx Instructions: TAKE ONE CAPSULE BY MOUTH TWICE DAILY diltiazem HCl 120 mg capsule,extended release 24hr 120 mg PO DAILY Qty: 30 5RF Discharge Orders: Discharge ED (Routine); Ordered 04/22/22 Ordered By: Greg Lao Referrals: Alberto Peralta FNP [Primary Care Provider] - Discharge Diet: Regular Discharge Activity: Increase activity as tolerated Patient Instructions: COVID-19 (Coronavirus Disease 2019) (ED) Activity Restrictions/Additional Instructions: Follow-up with medical provider as directed in the next 3 to 5 days for reevaluation. Take medications as prescribed. Return to the ER or your medical provider if condition worsens. Please read and understand discharge instructions. Thank you for choosing [facility] for your healthcare needs today. Please realize this is an emergency room and that we are providing you with a medical screening exam and this may not be complete and all inclusive of all the testing and or work up that you may need to determine your ailment or severity of your illness. It is very important that you follow up as instructed or that you return to the Emergency Department should you have concerns or if your condition changes or worsens in any way. Coding Level of Care Code ED [employer] Analyst for [employer] Exam Comprehensive
[2022-04-22 14:59] LABS: Influenza A by IFA negative (Negative); Influenza B by IFA negative (Negative)
[2022-04-22] MEDS: levoFLOXacin 500 mg Tablet PO (15:21)
== END 2022-04-22 16:40 | disposition home or self-care (01) ==
PROVIDERS: Emergency Provider Physician Assistant; PCP Nurse Practitioner Family
DX: U07.1 COVID-19 (principal); Z79.84 Long term (current) use of oral hypoglycemic drugs; Z79.4 Long term (current) use of insulin; Z87.891 Personal history of nicotine dependence; J44.9 Chronic obstructive pulmonary disease, unspecified; E11.9 Type 2 diabetes mellitus without complications; I10 Essential (primary) hypertension; Z99.81 Dependence on supplemental oxygen
CPT/HCPCS: 71045; 87426; 87804; 96372; 99284; J2930

== ENCOUNTER 2022-05-20 11:19 | Outpatient (CLI) | payer MEDICARE, MEDICAID, SELFPAY ==
--- NOTE | 2022-05-20 12:00 | CT_ITS ---
WS: [id number] CT CHEST TECHNIQUE: Noncontrast CT of the chest with coronal and sagittal reformatted images. CLINICAL INFORMATION: f/u lung nodule COMPARISON: CT February 18, 2022 DLP: 567.[address] scans at [facility] use at least one of these dose optimization techniques: automated e xposure control; mA and/or kV adjustment per patient size (includes targeted exams where dose is matc hed to clinical indication); or iterative reconstruction. FINDINGS: Previously described spiculated irregular LEFT hilar opacity abutting the distal main stem bronchus h as improved and essentially resolved compared to previous. Advanced chronic emphysematous changes. Fibrosis in the lung apices bilaterally. Fibrotic changes in the RIGHT middle lobe anteriorly. Traction bronchiectasis. New irregular spiculated opacity in the LE FT lower lobe not present on the prior study measures 12 mm suspicious for neoplasm. Recommend furthe r evaluation with PET/CT. Interstitial thickening in the lung bases. Nodular subpleural opacities in the LEFT lower lobe also a ppear new from previous at the level of the diaphragm medially measuring 10 mm with slight spiculatio n. Additional adjacent satellite nodule measuring 8 mm. Stable traction bronchiectasis in the lung ap ices. 6 mm subpleural nodule LEFT lower lobe also new from previous. A few additional nodular subpleu ral infiltrates and opacities in the RIGHT lower lobe similar to previous. Ectatic ascending thoracic aorta measuring 3.6 cm is unchanged. No mediastinal or hilar lymphadenopat hy. No axillary lymphadenopathy.Small esophageal hiatal hernia. Adrenal glands are normal. Splenic ar varun calcification. Cholelithiasis. Mild thoracic curve. Mild thoracic kyphosis. Ankylosis thoracic s pine. CT/CT chest wo con [id number] IMPRESSION: 1. Previously described LEFT upper lobe hilar opacity has essentially resolved compared to previous likely due to mucus plugging. 2. However there is a new suspicious spiculated opacity in the LEFT lower lobe posterior laterally measuring 12 mm. Recommend further evaluation with PET/CT. In addition pleural-based nodules in the LEFT lower lobe anteromedially along the diaphragm also new from previous the largest measuring 11 x 19 mm with a mendez spicious appearance. This can also be further evaluated with PET/CT. 3. Advanced chronic emphysematous changes. Traction bronchiectasis and fibrosi s in the lung apices. 4. Advanced chronic emphysematous changes.
== END 2022-05-20 11:20 | disposition home or self-care (01) ==
LOC: RAD 11:19
PROVIDERS: PCP Nurse Practitioner Family; Visit Provider Internal Medicine Pulmonary Disease
DX: R91.1 Solitary pulmonary nodule (principal); J47.9 Bronchiectasis, uncomplicated
CPT/HCPCS: 71250

== ENCOUNTER 2022-09-14 09:22 | Outpatient (CLI) | payer MEDICARE, MEDICAID, SELFPAY ==
--- NOTE | 2022-09-14 10:00 | CT_ITS ---
WS: [id number] CT chest wo con [id number] HISTORY: U07.1 - COVID-19 TECHNIQUE: Axial imaging performed through the thorax. Coronal and sagittal reformats are submitted. All CT scans at [facility] use at least one of these dose optimization techniques: automated exposure control; mA and/or kV adjustment per patient size (includes targeted exams where dose is mat ched to clinical indication); or iterative reconstruction. CONTRAST: None DLP: 512.35 mGy.cm COMPARISON: 05/20/2022, 02/18/2022 and 02/18/2021 Lungs and central airway: Severe emphysema with marked biapical pleural thickening and fibrosis. The areas of consolidation and interstitial thickening. Similar to 02/18/2021. Bilateral lower lobe areas of peripheral interstitial thickening, greatest in the RIGHT lower lobe. There is mild peripheral int erstitial thickening which is chronic. Previously described spiculated nodule in the LEFT lower lobe on the study of 05/20/2022 has resolved. Pleura: Normal. No pleural effusion. Heart and pericardium: Normal size heart with no pericardial effusion. Mediastinum and rosaura: No mediastinum or hilar adenopathy. Vessels: Moderate atherosclerosis aorta with mild ectasia. No aneurysm. Calcifications extend into th e proximal great vessels. Normal size pulmonary artery. Moderate coronary artery calcification. Chest wall and lower neck: Mild stable enlargement of the thyroid extends substernal. Upper abdomen: Hepatic steatosis. Cholelithiasis without acute cholecystitis. Normal bile duct. 2.1 c m RIGHT adrenal myelolipoma. Mild thickening of the LEFT adrenal gland. Heavy calcification in the sp lenic artery. Osseous structures: Ankylosing spondylitis. CT/CT chest wo con [id number] IMPRESSION: 1. Interval complete resolution of the recently described spiculated nodule LE FT lower lobe. 2. Severe chronic emphysema. 3. Stable biapical pleural thickening. 4. No acute interval change or adenopathy. 5. RIGHT adrenal myelolipoma. 6. Cholelithiasis without acute cholecystitis.
== END 2022-09-14 09:23 | disposition home or self-care (01) ==
LOC: RAD 09:25
PROVIDERS: PCP Nurse Practitioner Family; Visit Provider Internal Medicine Pulmonary Disease
DX: J44.9 Chronic obstructive pulmonary disease, unspecified (principal); R91.1 Solitary pulmonary nodule; D17.79 Benign lipomatous neoplasm of other sites; K80.20 Calculus of gallbladder without cholecystitis without obstruction; U07.1 COVID-19
CPT/HCPCS: 71250

== ENCOUNTER → 2022-10-15 14:26 | Outpatient (BNVA) | payer MEDICARE, MEDICAID, SELFPAY | PROVIDERS: PCP Nurse Practitioner Family; Visit Provider Family Medicine | DX: E11.9 Type 2 diabetes mellitus without complications (principal); E16.0 Drug-induced hypoglycemia without coma; T38.3X5A Adverse effect of insulin and oral hypoglycemic [antidiabetic] drugs, initial encounter; Z79.4 Long term (current) use of insulin | CPT/HCPCS: 80053; 80061; 82043; 83036 ==

== ENCOUNTER → 2022-12-14 13:51 | Outpatient (BNVA) | payer MEDICARE, MEDICAID, SELFPAY | PROVIDERS: PCP Nurse Practitioner Family; Visit Provider Family Medicine | DX: J22 Unspecified acute lower respiratory infection (principal) | CPT/HCPCS: 71046 ==

== ENCOUNTER → 2023-02-03 11:08 | Outpatient (BNVA) | payer MEDICARE, MEDICAID, SELFPAY | PROVIDERS: Visit Provider Internal Medicine | DX: E11.9 Type 2 diabetes mellitus without complications (principal); Z79.4 Long term (current) use of insulin; E16.0 Drug-induced hypoglycemia without coma; T38.3X5A Adverse effect of insulin and oral hypoglycemic [antidiabetic] drugs, initial encounter; Z79.84 Long term (current) use of oral hypoglycemic drugs; X58.XXXA Exposure to other specified factors, initial encounter | CPT/HCPCS: 99214 ==

== ENCOUNTER → 2023-02-10 13:32 | Outpatient (BNVA) | payer MEDICARE, MEDICAID, SELFPAY | PROVIDERS: PCP Nurse Practitioner Family; Visit Provider Nurse Practitioner Family | DX: R09.02 Hypoxemia (principal); J81.1 Chronic pulmonary edema | CPT/HCPCS: 71046 ==

== ENCOUNTER 2023-02-11 06:00 | Outpatient (RCR) | payer MEDICARE, MEDICAID, SELFPAY | END 2023-02-13 23:59 | disposition home or self-care (01) | LOC: WPT 06:00 | PROVIDERS: PCP Nurse Practitioner Family; Visit Provider Internal Medicine Pulmonary Disease | DX: J44.9 Chronic obstructive pulmonary disease, unspecified (principal) | CPT/HCPCS: 97163 ==

== ENCOUNTER 2023-02-14 06:00 | Outpatient (RCR) | payer MEDICARE, MEDICAID, SELFPAY | END 2023-03-16 23:59 | disposition home or self-care (01) | LOC: WPT 06:00 | PROVIDERS: PCP Nurse Practitioner Family; Visit Provider Internal Medicine Pulmonary Disease | DX: J44.9 Chronic obstructive pulmonary disease, unspecified (principal) | CPT/HCPCS: 97110; 97112; 97116; 97530 ==

== ENCOUNTER 2023-03-04 14:06 | Emergency (ER) | payer MEDICARE, MEDICAID, SELFPAY ==
[2023-03-04 14:06] VITALS: BP 163/70; PULSE 80; RESP 18; TEMP 37.5; O2SAT 98; BMI 28.5
--- NOTE | 2023-03-04 14:09 | XR_ITS ---
WS: [id number] Portable AP upright chest, 03/04/2023 Clinical Data: elevated bp, short of breath Comparison: PA and lateral chest, 02/10/2023 Findings: No nodules, masses or effusions are seen. The upper lobe fibrosis and pleural thickening pr obably represents chronic lung disease. No acute pneumonia is seen. The heart is normal. The pulmonar y vascularity is not increased. No pneumothorax is seen. The aortic arch and descending thoracic aort a show calcification and minimal mild tortuosity. There is widening of the interspace between the rig ht fifth and sixth rib and the patient is had thoracic surgery in the past. Impression: 1. Negative for acute pulmonary change. 2. Chronic fibrotic changes in both upper lobes with pleural thickening and interstitial thickening.
--- NOTE | 2023-03-04 14:10 | ECG_ITS ---
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 Measurements Intervals [place] Rate: 84 P: 78 CA: 194 QRS: 66 QRSD: 114 T: 70 QT: 356 QTc: 422 Interpretive Statements SINUS RHYTHM MODERATE INTRAVENTRICULAR CONDUCTION DELAY [110+ ms QRS DURATION] Compared to ECG 04/23/2020 20:49:06 Intraventricular conduction delay now present T-wave abnormality no longer present Electronically Signed On 03-05-2023 1:06:36 CDT by Maged Parrish M.D. [email or web address] Gasnoxub[facility] hospitalComp[facility].[employer]/store/NU/[id number]/[id number] f
--- NOTE | 2023-03-04 14:11 | W.ED.GENADLT ---
Documented by User: LUPE Feliciano 03/04/23 16:36 HPI - General Adult General: Chief complaint: Chest Pain Stated complaint: high blood pressure Time Seen by Provider: 03/04/23 14:09 History of Present Illness: 68-year-old male patient comes in today for complaints of elevated blood pressure and increased shortness of breath this morning when he awakened. Patient was treated in route to the ER with 2 doses of nitro. Patient's blood pressure has come down to 163 systolic and patient feels like his normal self. Patient has noted some elevated blood pressure readings over the past couple of weeks. Patient appears nontoxic. Patient is chronically ill. Patient has COPD, diabetes mellitus, history of atrial fib, and patient is on long-term anticoagulation therapy. Patient appears in no pain. Associated symptoms: Reports chest pain and dyspnea (Chronic); Deny nausea, rash or vomiting Review of Systems General: Reports: 10 or more systems reviewed and unremarkable except in HPI and below Const: Denies: fever(s) Card: Reports: chest pain Resp: Reports: dyspnea (Chronic) GI: Denies: nausea, vomiting, diarrhea or constipation : Denies: difficulty urinating Musc: Denies: neck pain or back pain Skin/Breast: Denies: rash PFSH ED PFSH: Medical History Anticoagulation adequate with anticoagulant therapy Pradaxa Atrial fibrillation Bilateral impacted cerumen Chronic respiratory failure with hypoxia COPD (chronic obstructive pulmonary disease) Diabetes Exposure to COVID-19 virus Generalized weakness GERD (gastroesophageal reflux disease) HTN (hypertension) Hypertension screen Lower respiratory infection Mass of upper lobe of left lung Nicotine addiction Obesity Oxygen dependent Rheumatoid arthritis RLS (restless legs syndrome) Tobacco abuse, in remission UTI symptoms Vitamin D deficiency Surgical History H/O pneumonectomy [address] Leos Hx of tracheostomy Family History Mother Parkinson disease Father Cancer Social History Smoking and tobacco/nicotine status: former use of tobacco/nicotine Quit status (tobacco/nicotine): has quit using Year quit tobacco: 2014 - 2PPD x 45 Years Second hand smoke exposure: No Alcohol intake: never Substance/Drug Use: current Lives independently: Yes Household members: spouse Marital status: service: No Current occupational status: disabled Do you think of yourself as: Straight/Heterosexual Physical Exam HENMT: COMMON NORMALS: normocephalic HEAD & SCALP: normocephalic Neck/C-Spine: COMMON NORMALS: full ROM Lymph: LYMPHATIC: lymphadenopathy Resp: EFFORT & INSPECTION: Yes pursed lip breathing AUSCULTATION: diminished lung sounds Cardio: COMMON NORMALS: regular rate and regular rhythm RATE: regular rate RHYTHM: regular rhythm GI: COMMON NORMALS: non-tender Extremity: COMMON NORMALS: no pedal edema Neuro: MITCHEL COMA SCALE: document GCS findings Trail coma scale eye opening: Spontaneous Trail coma scale verbal response: Orientated Trail coma scale motor response: Obey commands Trail coma scale total score: 15 Skin: COMMON NORMALS: turgor normal GENERAL SKIN EXAM: turgor normal Course Vital Signs: Vital signs: Vital Signs Temperature 99.5 F 03/04/23 14:06 Pulse Rate 80 03/04/23 14:06 Respiratory Rate 18 03/04/23 14:06 Blood Pressure 183/73 03/04/23 15:50 Pulse Oximetry 98 03/04/23 14:06 Oxygen Delivery Me thod Nasal Cannula 03/04/23 14:06 Oxygen Flow Rate 3 03/04/23 14:06 [facility] - General Adult Medical Decision Making 68-year-old male patient comes in today for complaints of high blood pressure. Patient appears nontoxic. Patient appears in no pain. Patient was given 2 doses of nitroglycerin in route to the ER. On exam patient has no edema in the lower extremities. Skin is warm and dry. Vital signs are normal except for mild elevation in blood pressure at 160 systolic. Patient is dependent oxygen user. Differential diagnosis includes pneumonia, uncontrolled hypertension, CHF, ACS, anxiety. Chest x-ray showed no acute changes. CBC was unremarkable. CMP noted mild decrease in sodium at 132, creatinine 0.5, glucose was 139. BNP was normal. Troponin had no change at 2 hours and a negative delta curve. Patient was started on losartan 50 mg daily for blood pressure. Patient was recommended to follow-up with primary lawn care worker for further evaluation and treatment of blood pressure. Patient agreed to plan of care and need for follow-up. Patient was stable and discharged home. Lab Data 03/04/23 13:03 03/04/23 13:03 Laboratory Results WBC 8.50 10^3/uL (3.29-11.43) 03/04/23 13:03 RBC 5.36 10^6/uL (3.85-5.65) 03/04/23 13:03 Hgb 14.60 g/dL (11.27-16.99) 03/04/23 13:03 Hct 46.1 % (37-53) 03/04/23 13:03 MCV 86.0 fl (82-101) 03/04/23 13:03 MCH 27.2 pg (27-33) 03/04/23 13:03 MCHC 31.7 g/dL (30-55) 03/04/23 13:03 RDW 15.9 % (12.1-15.1) H 03/04/23 13:03 Plt Count 191 10^3/cmm (157-399) 03/04/23 13:03 MPV 11.2 fL (7.4-10.4) H 03/04/23 13:03 Neut % (Auto) 66.2 % 03/04/23 13:03 Lymph % (Auto) 20.4 % 03/04/23 13:03 [place] % (Auto) 9.3 % 03/04/23 13:03 Eos % (Auto) 3.1 % 03/04/23 13:03 Baso % (Auto) 0.6 % 03/04/23 13:03 Neut # (Auto) 5.64 10^3/uL (1.8-7.7) 03/04/23 13:03 Lymph # (Auto) 1.7 10^3/uL (0.8-4.8) 03/04/23 13:03 [place] # (Auto) 0.8 10^3/uL (0.2-0.9) 03/04/23 13:03 Eos # (Auto) 0.3 10^3/uL (0.0-0.8) 03/04/23 13:03 Baso # (Auto) 0.1 10^3/uL (0.0-0.1) 03/04/23 13:03 Nucleated RBC % (auto) 0 % 03/04/23 13:03 Nucleated RBCs # 0.0 /100WBC 03/04/23 13:03 Sodium 132 mmol/L (136-145) L 03/04/23 13:03 Potassium 4.3 mmol/L (3.5-5.1) 03/04/23 13:03 Chloride 95 mmol/L (98-107) L 03/04/23 13:03 Carbon Dioxide 28 mmol/L (22-29) 03/04/23 13:03 Anion Gap 13.3 (5-19) 03/04/23 13:03 BUN 12 mg/dL (8-23) 03/04/23 13:03 Creatinine 0.5 mg/dL (0.7-1.2) L 03/04/23 13:03 GFR Calculation 164.9 mL/min (90-130) H 03/04/23 13:03 Glucose 139 mg/dL (65-115) H 03/04/23 13:03 Calculated Osmolality 276 mOsm/kg (285-295) L 03/04/23 13:03 Calcium 9.1 mg/dL (8.5-10.5) 03/04/23 13:03 Total Bilirubin 0.5 mg/dL (0.15-1.2) 03/04/23 13:03 AST 20 U/L (0-40) 03/04/23 13:03 ALT 23 U/L (0-41) 03/04/23 13:03 Alkaline Phosphatase 91 U/L (40-130) 03/04/23 13:03 Troponin T Baseline 16 ng/L (0-15) H 03/04/23 13:03 Troponin T 120 Minute 15.27 ng/L (0-15) H 03/04/23 15:05 Delta Troponin T -0.73 ABS# (0-10) L 03/04/23 15:05 NT-Pro-B Natriuret Pep 99 pg/mL (0-125) 03/04/23 13:03 Total Protein 7.2 g/dL (6.6-8.7) 03/04/23 13:03 Albumin 4.0 g/dL (3.5-5.2) 03/04/23 13:03 Globulin 3.2 g/dL (1.3-4.6) 03/04/23 13:03 All radiology interpretation(s) finalized by discharge EKG Data EKG 1: EKG interpretation date: 03/04/23 EKG interpretation time: 14:15 Prior EKG tracings: not available for review Interpretation: EKG shows a sinus rhythm with a regular rate at [address] elevation or ectopy is noted. No prior exam was available for comparison. Computer generated interpretation: Sinus rhythm, moderate intraventricular conduction delay, borderline EKG, unconfirmed report. Discharge Plan Discharge Patient Disposition: Home Clinical Impression: Hypertensive emergency, no CHF Condition: Stable Prescriptions: New losartan 50 mg tablet 50 mg PO DAILY Qty: 30 0RF No Action cbd gummies PO lidocaine HCl [Xylocaine] 10 mg/mL (1 %) solution 1 ml IM ONCE Qty: 1 0RF (DME) ReliOn Prime Test Strips Strip See Rx Instructions .Route Qty: 300 3RF Rx Instructions: As directed Debrox 6.5 % drops 5 drp otic (ear) BID PRN Hyper-Gilberto 3.5 % solution for nebulization 4 ml inhalation BID Qty: 240 3RF (DME) AFFLO Vest See Rx Instructions .Route .MEDSUPPLY Qty: 1 0RF Rx Instructions: As directed glipizide 5 mg tablet See Rx Instructions .ROUTE .COMPLEX Dose Instruction: TAKE 1/2 TABLET BY MOUTH TWICE DAILY Rx Instructions: TAKE 1/2 TABLET BY MOUTH daily prn tamsulosin [Flomax] 0.4 mg capsule 0.4 mg PO DAILY 30 Days Qty: 30 0RF prednisone 20 mg tablet 20 mg PO DAILY 7 Days Qty: 7 0RF Krill Oil PO calcium with vit D PO potassium PO vitamin c PO zinc PO insulin aspart U-100 [Novolog FlexPen U-100 Insulin] 100 unit/mL (3 mL) insulin pen 10 unit SUBCUT TID Qty: 30 3RF Rx Instructions: Inject 10 units three times a day with meals. azithromycin 250 mg tablet See Rx Instructions PO DAILY Hold Instructions: Home Medication placed on hold at Doctor's office Rx Instructions: take 1 tablet by mouth every Wednesday, Wednesday and Wednesday miscellaneous medical supply Misc See Rx Instructions miscellaneous .COMPLEX Qty: 1 0RF Rx Instructions: Acapella device to use as directed as directed; guaifenesin [Mucinex] 600 mg tablet extended release 12hr 600 mg PO Q12H PRN (Reason: congestion) 30 Days Qty: 60 0RF prednisone 20 mg tablet 20 mg PO BID 5 Days Qty: 10 0RF albuterol sulfate 90 mcg/actuation HFA aerosol inhaler See Rx Instructions .ROUTE .COMPLEX Qty: 8.5 3RF Dose Instruction: INHALE 2 PUFFS BY MOUTH EVERY 6 HOURS NEEDED FOR SHORTNESS OF BREATH OR WHEEZING Rx Instructions: INHALE 2 PUFFS BY MOUTH EVERY 4 HOURS NEEDED FOR SHORTNESS OF BREATH OR WHEEZING (DME) blood sugar diagnostic Strip See Rx Instructions .ROUTE .MEDSUPPLY Qty: 120 5RF Rx Instructions: As directed 4 times daily cetirizine 10 mg tablet See Rx Instructions .ROUTE .COMPLEX Qty: 30 5RF Dose Instruction: TAKE 1 TABLET BY MOUTH EVERY DAY Rx Instructions: TAKE 1 TABLET BY MOUTH EVERY DAY (DME) pen needle, diabetic [1st Tier Unifine Pentips] 32 gauge x 5/32 needle See Rx Instructions .Route Qty: 100 2RF Rx Instructions: As directed twice daily omeprazole 20 mg capsule,delayed release(DR/EC) 20 mg PO DAILY Qty: 30 5RF (DME) FreeStyle Dannie 2 [place] Misc See Rx Instructions .Route Qty: 1 0RF Rx Instructions: Check BS 4-6 times a day. miscellaneous medical supply Misc See Rx Instructions miscellaneous .COMPLEX Qty: 1 0RF Rx Instructions: Acapella device to use as directed as directed; ipratropium-albuterol 0.5 mg-3 mg(2.5 mg base)/3 mL solution for nebulization See Rx Instructions .ROUTE .COMPLEX Qty: 540 4RF Dose Instruction: USE 3 ML VIA NEBULIZER EVERY 4 HOURS NEEDED FOR SHORTNESS OF BREATH OR WHEEZING Rx Instructions: USE 3 ML VIA NEBULIZER EVERY 4 HOURS NEEDED FOR SHORTNESS OF BREATH OR WHEEZING albuterol sulfate [ProAir HFA] 90 mcg/actuation HFA aerosol inhaler 2 puff INHALATION Q6H PRN (Reason: shortness of breath or wheezing) Qty: 8.5 3RF Trelegy Ellipta 200-62.5-25 mcg blister with device 1 inh inhalation DAILY Qty: 60 2RF Rx Instructions: 1 inh inhaled daily; dabigatran etexilate 150 mg capsule See Rx Instructions .ROUTE .COMPLEX Qty: 180 0RF Dose Instruction: TAKE 1 CAPSULE BY MOUTH TWICE DAILY Rx Instructions: TAKE 1 CAPSULE BY MOUTH TWICE DAILY diltiazem HCl 120 mg capsule,extended release 24hr See Rx Instructions .ROUTE .COMPLEX Qty: 30 2RF Dose Instruction: TAKE 1 CAPSULE BY MOUTH DAILY Rx Instructions: TAKE 1 CAPSULE BY MOUTH DAILY insulin glargine [Lantus Solostar U-100 Insulin] 100 unit/mL (3 mL) insulin pen See Rx Instructions .ROUTE .COMPLEX Qty: 15 3RF Dose Instruction: inject 54 UNITS sub-q ONCE EVERY NIGHT AT BEDTIME Rx Instructions: inject 54 UNITS sub-q ONCE EVERY NIGHT AT BEDTIME (DME) FreeStyle Dannie 2 Sensor Kit See Rx Instructions .Route Qty: 6 3RF Rx Instructions: Change every 14 days. (DME) FreeStyle Dannie 14 Day Sensor Kit See Rx Instructions .Route Qty: 1 3RF Rx Instructions: As directed Discharge Orders: Discharge ED (Routine); Ordered 03/04/23 Ordered By: Job Negron Referrals: Alberto Peralta FNP [Primary Care Provider] - Discharge Diet: Usual diet Discharge Activity: Increase activity as tolerated Patient Instructions: Hypertension in the Older Adult (ED) Activity Restrictions/Additional Instructions: Continue with routine care. Take losartan 50 mg 1 tablet daily. Take the medication about the same time each day. Follow-up with primary care as scheduled appointment. Return to ED for worsening symptoms such as high fever greater than 100.4, worsening shortness of breath, or new concerns. Coding Level of Care Code ED [facility] for Chg Fwd Documented by User: Toyin Roque MD 03/04/23 18:13 HPI - General Adult General: Chief complaint: Chest Pain Stated complaint: high blood pressure Time Seen by Provider: 03/04/23 14:09 [facility] ED PFSH: Medical History Anticoagulation adequate with anticoagulant therapy Pradaxa Atrial fibrillation Bilateral impacted cerumen Chronic respiratory failure with hypoxia COPD (chronic obstructive pulmonary disease) Diabetes Exposure to COVID-19 virus Generalized weakness GERD (gastroesophageal reflux disease) HTN (hypertension) Hypertension screen Lower respiratory infection Mass of upper lobe of left lung Nicotine addiction Obesity Oxygen dependent Rheumatoid arthritis RLS (restless legs syndrome) Tobacco abuse, in remission UTI symptoms Vitamin D deficiency Surgical History H/O pneumonectomy [address] Leos Hx of tracheostomy Family History Mother Parkinson disease Father Cancer Social History Smoking and tobacco/nicotine status: former use of tobacco/nicotine Quit status (tobacco/nicotine): has quit using Year quit tobacco: 2013 - 2PPD x 45 Years Second hand smoke exposure: No Alcohol intake: never Substance/Drug Use: current Lives independently: Yes Household members: spouse Marital status: service: No Current occupational status: disabled Do you think of yourself as: Straight/Heterosexual Physical Exam Neuro: MITCHEL COMA SCALE: document GCS findings Trail coma scale total score: 15 Course Vital Signs: Vital signs: Vital Signs Temperature 99.5 F 03/04/23 14:06 Pulse Rate 80 03/04/23 14:06 Respiratory Rate 18 03/04/23 14:06 Blood Pressure 183/73 03/04/23 15:50 Pulse Oximetry 98 03/04/23 14:06 Oxygen Delivery Me thod Nasal Cannula 03/04/23 14:06 Oxygen Flow Rate 3 03/04/23 14:06 MDM - General Adult Lab Data 03/04/23 13:03 03/04/23 13:03 Laboratory Results WBC 8.50 10^3/uL (3.29-11.43) 03/04/23 13:03 RBC 5.36 10^6/uL (3.85-5.65) 03/04/23 13:03 Hgb 14.60 g/dL (11.27-16.99) 03/04/23 13:03 Hct 46.1 % (37-53) 03/04/23 13:03 MCV 86.0 fl (82-101) 03/04/23 13:03 MCH 27.2 pg (27-33) 03/04/23 13:03 MCHC 31.7 g/dL (30-55) 03/04/23 13:03 RDW 15.9 % (12.1-15.1) H 03/04/23 13:03 Plt Count 191 10^3/cmm (157-399) 03/04/23 13:03 MPV 11.2 fL (7.4-10.4) H 03/04/23 13:03 Neut % (Auto) 66.2 % 03/04/23 13:03 Lymph % (Auto) 20.4 % 03/04/23 13:03 [place] % (Auto) 9.3 % 03/04/23 13:03 Eos % (Auto) 3.1 % 03/04/23 13:03 Baso % (Auto) 0.6 % 03/04/23 13:03 Neut # (Auto) 5.64 10^3/uL (1.8-7.7) 03/04/23 13:03 Lymph # (Auto) 1.7 10^3/uL (0.8-4.8) 03/04/23 13:03 [place] # (Auto) 0.8 10^3/uL (0.2-0.9) 03/04/23 13:03 Eos # (Auto) 0.3 10^3/uL (0.0-0.8) 03/04/23 13:03 Baso # (Auto) 0.1 10^3/uL (0.0-0.1) 03/04/23 13:03 Nucleated RBC % (auto) 0 % 03/04/23 13:03 Nucleated RBCs # 0.0 /100WBC 03/04/23 13:03 Sodium 132 mmol/L (136-145) L 03/04/23 13:03 Potassium 4.3 mmol/L (3.5-5.1) 03/04/23 13:03 Chloride 95 mmol/L (98-107) L 03/04/23 13:03 Carbon Dioxide 28 mmol/L (22-29) 03/04/23 13:03 Anion Gap 13.3 (5-19) 03/04/23 13:03 BUN 12 mg/dL (8-23) 03/04/23 13:03 Creatinine 0.5 mg/dL (0.7-1.2) L 03/04/23 13:03 GFR Calculation 164.9 mL/min (90-130) H 03/04/23 13:03 Glucose 139 mg/dL (65-115) H 03/04/23 13:03 Calculated Osmolality 276 mOsm/kg (285-295) L 03/04/23 13:03 Calcium 9.1 mg/dL (8.5-10.5) 03/04/23 13:03 Total Bilirubin 0.5 mg/dL (0.15-1.2) 03/04/23 13:03 AST 20 U/L (0-40) 03/04/23 13:03 ALT 23 U/L (0-41) 03/04/23 13:03 Alkaline Phosphatase 91 U/L (40-130) 03/04/23 13:03 Troponin T Baseline 16 ng/L (0-15) H 03/04/23 13:03 Troponin T 120 Minute 15.27 ng/L (0-15) H 03/04/23 15:05 Delta Troponin T -0.73 ABS# (0-10) L 03/04/23 15:05 NT-Pro-B Natriuret Pep 99 pg/mL (0-125) 03/04/23 13:03 Total Protein 7.2 g/dL (6.6-8.7) 03/04/23 13:03 Albumin 4.0 g/dL (3.5-5.2) 03/04/23 13:03 Globulin 3.2 g/dL (1.3-4.6) 03/04/23 13:03 Discharge Plan Discharge Patient Disposition: Home Clinical Impression: Hypertensive emergency, no CHF Condition: Stable Prescriptions: New losartan 50 mg tablet 50 mg PO DAILY Qty: 30 0RF No Action cbd gummies PO lidocaine HCl [Xylocaine] 10 mg/mL (1 %) solution 1 ml IM ONCE Qty: 1 0RF (DME) ReliOn Prime Test Strips Strip See Rx Instructions .Route Qty: 300 3RF Rx Instructions: As directed Debrox 6.5 % drops 5 drp otic (ear) BID PRN Hyper-Gilberto 3.5 % solution for nebulization 4 ml inhalation BID Qty: 240 3RF (DME) AFFLO Vest See Rx Instructions .Route .MEDSUPPLY Qty: 1 0RF Rx Instructions: As directed glipizide 5 mg tablet See Rx Instructions .ROUTE .COMPLEX Dose Instruction: TAKE 1/2 TABLET BY MOUTH TWICE DAILY Rx Instructions: TAKE 1/2 TABLET BY MOUTH daily prn tamsulosin [Flomax] 0.4 mg capsule 0.4 mg PO DAILY 30 Days Qty: 30 0RF prednisone 20 mg tablet 20 mg PO DAILY 7 Days Qty: 7 0RF Krill Oil PO calcium with vit D PO potassium PO vitamin c PO zinc PO insulin aspart U-100 [Novolog FlexPen U-100 Insulin] 100 unit/mL (3 mL) insulin pen 10 unit SUBCUT TID Qty: 30 3RF Rx Instructions: Inject 10 units three times a day with meals. azithromycin 250 mg tablet See Rx Instructions PO DAILY Hold Instructions: Home Medication placed on hold at Doctor's office Rx Instructions: take 1 tablet by mouth every Wednesday, Wednesday and Wednesday miscellaneous medical supply Misc See Rx Instructions miscellaneous .COMPLEX Qty: 1 0RF Rx Instructions: Acapella device to use as directed as directed; guaifenesin [Mucinex] 600 mg tablet extended release 12hr 600 mg PO Q12H PRN (Reason: congestion) 30 Days Qty: 60 0RF prednisone 20 mg tablet 20 mg PO BID 5 Days Qty: 10 0RF albuterol sulfate 90 mcg/actuation HFA aerosol inhaler See Rx Instructions .ROUTE .COMPLEX Qty: 8.5 3RF Dose Instruction: INHALE 2 PUFFS BY MOUTH EVERY 6 HOURS NEEDED FOR SHORTNESS OF BREATH OR WHEEZING Rx Instructions: INHALE 2 PUFFS BY MOUTH EVERY 4 HOURS NEEDED FOR SHORTNESS OF BREATH OR WHEEZING (DME) blood sugar diagnostic Strip See Rx Instructions .ROUTE .MEDSUPPLY Qty: 120 5RF Rx Instructions: As directed 4 times daily cetirizine 10 mg tablet See Rx Instructions .ROUTE .COMPLEX Qty: 30 5RF Dose Instruction: TAKE 1 TABLET BY MOUTH EVERY DAY Rx Instructions: TAKE 1 TABLET BY MOUTH EVERY DAY (DME) pen needle, diabetic [1st Tier Unifine Pentips] 32 gauge x 5/32 needle See Rx Instructions .Route Qty: 100 2RF Rx Instructions: As directed twice daily omeprazole 20 mg capsule,delayed release(DR/EC) 20 mg PO DAILY Qty: 30 5RF (DME) FreeStyle Dannie 2 [place] Misc See Rx Instructions .Route Qty: 1 0RF Rx Instructions: Check BS 4-6 times a day. miscellaneous medical supply Misc See Rx Instructions miscellaneous .COMPLEX Qty: 1 0RF Rx Instructions: Acapella device to use as directed as directed; ipratropium-albuterol 0.5 mg-3 mg(2.5 mg base)/3 mL solution for nebulization See Rx Instructions .ROUTE .COMPLEX Qty: 540 4RF Dose Instruction: USE 3 ML VIA NEBULIZER EVERY 4 HOURS NEEDED FOR SHORTNESS OF BREATH OR WHEEZING Rx Instructions: USE 3 ML VIA NEBULIZER EVERY 4 HOURS NEEDED FOR SHORTNESS OF BREATH OR WHEEZING albuterol sulfate [ProAir HFA] 90 mcg/actuation HFA aerosol inhaler 2 puff INHALATION Q6H PRN (Reason: shortness of breath or wheezing) Qty: 8.5 3RF Trelegy Ellipta 200-62.5-25 mcg blister with device 1 inh inhalation DAILY Qty: 60 2RF Rx Instructions: 1 inh inhaled daily; dabigatran etexilate 150 mg capsule See Rx Instructions .ROUTE .COMPLEX Qty: 180 0RF Dose Instruction: TAKE 1 CAPSULE BY MOUTH TWICE DAILY Rx Instructions: TAKE 1 CAPSULE BY MOUTH TWICE DAILY diltiazem HCl 120 mg capsule,extended release 24hr See Rx Instructions .ROUTE .COMPLEX Qty: 30 2RF Dose Instruction: TAKE 1 CAPSULE BY MOUTH DAILY Rx Instructions: TAKE 1 CAPSULE BY MOUTH DAILY insulin glargine [Lantus Solostar U-100 Insulin] 100 unit/mL (3 mL) insulin pen See Rx Instructions .ROUTE .COMPLEX Qty: 15 3RF Dose Instruction: inject 54 UNITS sub-q ONCE EVERY NIGHT AT BEDTIME Rx Instructions: inject 54 UNITS sub-q ONCE EVERY NIGHT AT BEDTIME (DME) FreeStyle Dannie 2 Sensor Kit See Rx Instructions .Route Qty: 6 3RF Rx Instructions: Change every 14 days. (DME) FreeStyle Dannie 14 Day Sensor Kit See Rx Instructions .Route Qty: 1 3RF Rx Instructions: As directed Discharge Orders: Discharge ED (Routine); Ordered 03/04/23 Ordered By: Job Negron Referrals: Alberto Peralta, PSYCHIC READER [Primary Care Provider] - Discharge Diet: Usual diet Discharge Activity: Increase activity as tolerated Patient Instructions: Hypertension in the Older Adult (ED) Activity Restrictions/Additional Instructions: Continue with routine care. Take losartan 50 mg 1 tablet daily. Take the medication about the same time each day. Follow-up with primary care as scheduled appointment. Return to ED for worsening symptoms such as high fever greater than 100.4, worsening shortness of breath, or new concerns. Coding Level of Care Code ED [facility] for Lizbet Love
[2023-03-04 14:19] LABS: Basophils # 0.1 10^3/uL (0.0-0.1); Basophils % 0.6 %; Eosinophils # 0.3 10^3/uL (0.0-0.8); Eosinophils % 3.1 %; Hematocrit 46.1 % (37-53); Lymphocytes # 1.7 10^3/uL (0.8-4.8); Lymphocytes % 20.4 %; Mean Corpuscular HGB Conc 31.7 g/dL (30-55); Mean Corpuscular Hemoglobin 27.2 pg (27-33); Mean Platelet Volume 11.2 fL (7.4-10.4); Monocytes # 0.8 10^3/uL (0.2-0.9); Monocytes % 9.3 %; Neutrophils # 5.64 10^3/uL (1.8-7.7); Neutrophils % 66.2 %; Nucleated Red Blood Cells % 0 %; Platelet Count 191 10^3/cmm (157-399); Red Blood Count 5.36 10^6/uL (3.85-5.65); Red Cell Distribution Width 15.9 % (12.1-15.1)
[2023-03-04 14:49] LABS: Troponin(5th) Baseline 16 ng/L (0-15)
[2023-03-04 14:57] LABS: Alanine Aminotransferase 23 U/L (0-41); Alkaline Phosphatase 91 U/L (40-130); Anion Gap 13.3 (5-19); Aspartate Amino Transferase 20 U/L (0-40); Blood Urea Nitrogen 12 mg/dL (8-23); Calcium 9.1 mg/dL (8.5-10.5); Carbon Dioxide 28 mmol/L (22-29); Chloride 95 mmol/L (98-107); Globulin 3.2 g/dL (1.3-4.6); Glomerular Filtration Rate 164.9 mL/min (90-130); Glucose 139 mg/dL (65-115); NT Pro B Type Natriuretic Pept 99 pg/mL (0-125); Osmolality Calculated 276 mOsm/kg (285-295); Potassium 4.3 mmol/L (3.5-5.1); Sodium 132 mmol/L (136-145); Total Bilirubin 0.5 mg/dL (0.15-1.2); Total Protein 7.2 g/dL (6.6-8.7)
[2023-03-04 15:29] LABS: Troponin 5 2HR 15.27 ng/L (0-15); Troponin 5 2HR Delta -0.73 ABS# (0-10)
[2023-03-04 15:50] VITALS: BP 183/73
[2023-03-04] MEDS: losartan 50 mg Tablet PO (15:50)
== END 2023-03-04 16:04 | disposition home or self-care (01) ==
PROVIDERS: Emergency Provider Nurse Practitioner Family; PCP Nurse Practitioner Family
DX: I16.1 Hypertensive emergency (principal); Z79.84 Long term (current) use of oral hypoglycemic drugs; Z79.4 Long term (current) use of insulin; Z87.891 Personal history of nicotine dependence; J44.9 Chronic obstructive pulmonary disease, unspecified; E11.9 Type 2 diabetes mellitus without complications; I10 Essential (primary) hypertension
CPT/HCPCS: 71045; 80053; 83880; 84484; 85025; 93005; 99285

== ENCOUNTER → 2023-05-05 13:48 | Outpatient (BNVA) | payer MEDICARE, MEDICAID, SELFPAY | PROVIDERS: PCP Nurse Practitioner Family; Visit Provider Internal Medicine Pulmonary Disease | DX: J44.89 Other specified chronic obstructive pulmonary disease (principal); E11.9 Type 2 diabetes mellitus without complications; E16.0 Drug-induced hypoglycemia without coma; T38.3X5A Adverse effect of insulin and oral hypoglycemic [antidiabetic] drugs, initial encounter | CPT/HCPCS: 80053; 82785; 86003 ==

== ENCOUNTER → 2023-07-26 10:16 | Outpatient (BNVA) | payer MEDICARE, MEDICAID, SELFPAY | PROVIDERS: PCP Nurse Practitioner Family; Visit Provider Nurse Practitioner Family | DX: Z79.4 Long term (current) use of insulin (principal); E11.9 Type 2 diabetes mellitus without complications; E16.0 Drug-induced hypoglycemia without coma; T38.3X5A Adverse effect of insulin and oral hypoglycemic [antidiabetic] drugs, initial encounter; Z12.5 Encounter for screening for malignant neoplasm of prostate; H61.20 Impacted cerumen, unspecified ear | CPT/HCPCS: 80053; 80061; 83036; G0103 ==

== ENCOUNTER → 2023-07-28 11:57 | Outpatient (BNVA) | payer MEDICARE, MEDICAID, SELFPAY | PROVIDERS: PCP Nurse Practitioner Family; Visit Provider Internal Medicine | DX: E11.9 Type 2 diabetes mellitus without complications (principal); E16.0 Drug-induced hypoglycemia without coma; T38.3X5A Adverse effect of insulin and oral hypoglycemic [antidiabetic] drugs, initial encounter | CPT/HCPCS: 82043; 82384; 82530; 82570 ==

== ENCOUNTER → 2024-01-24 10:59 | Outpatient (BNVA) | payer MEDICARE, SELFPAY | PROVIDERS: PCP Nurse Practitioner Family; Referring Provider Nurse Practitioner Family; Visit Provider Surgery | DX: K21.9 Gastro-esophageal reflux disease without esophagitis; R19.5 Other fecal abnormalities; K59.04 Chronic idiopathic constipation | CPT/HCPCS: 99204 ==

== ENCOUNTER 2024-03-01 09:07 | Day surgery (SDC) | payer MEDICARE, SELFPAY ==
[2024-03-01 09:24] VITALS: BP 176/103; PULSE 95; RESP 18; TEMP 36.4; O2SAT 95
[2024-03-01] MEDS: sodium chloride 0.9% 1,000 ML 30 ML IV (09:43)
[2024-03-01 09:52] LABS: Glucose Point of Care 118 mg/dL (70-110)
--- NOTE | 2024-03-01 10:39 | ANES.PREANE2 ---
Pre-Anesthetic Assessment Height/Weight: Height 1.83 m Weight 93.894 kg Temp Pulse Resp BP Pulse Ox O2 Del Method O2 Flow Rate 97.5 F L 95 18 176/103 95 Nasal Cannula 3 03/01/24 09:24 03/01/24 09:24 03/01/24 09:24 03/01/24 09:24 03/01/24 09:24 03/01/24 09:24 03/01/24 09:24 Preop Diagnosis: + cologuard, GERD, Screening Operation Date: 03/01/24 10:15 Proposed Procedures p EGD 25195, 23887, G0105, Z12.11, K21.9(Not Applicable) - DO lin [place] Colonoscopy(Not Applicable) - Carroll Raygoza DO Familial anesthetic complications: none Was Beta Marcello taken within 24 hours: N/A Last intake: Intake Last Liquid Date 02/29/24 Last Liquid Time 22:00 Last Solid Date 02/28/24 Last Solid Time 17:00 Social No alcohol and No tobacco Marijuana gummie every morning. Exam alert, oriented x 3, clear to auscultation bilaterally and regular rate & rhythm Airway Submandibular: within normal limits Cervical ROM: within normal limits Mallampati: Class II Dentition: chipped and loose Comments: Comments: multiple missing very poor dentition. bearded. Pulmonary Chronic Obstructive Pulmonary Disease and Shortness of Breath 3L nasal cannula used at home, has been on continous o2 for 12 years. CV/HEM Stable Angina (1x a week patient believes it is related to lungs.) and Hypertension None reported Hepatic None reported GI Gastroesophageal Reflux Disease Metabolic Diabetes Mellitus and Hyperlipidemia [facility] [place]/sk wheelchair bound METS<4 due to SOB. Medications/Allergies Home Medications Medication Instructions Recorded Confirmed Last Taken Type blood sugar diagnostic #120 ea 12/17/20 01/24/24 02/29/24 Rx pen needle, diabetic 32 gauge x #100 ea 02/06/21 01/24/24 02/29/24 Rx 5/32 (1st Tier Unifine Pentips) calcium with vit D 1 tab PO DAILY 12/25/21 02/28/24 02/29/24 History cbd gummies 2.5 mg PO BID 12/25/21 02/28/24 02/29/24 History potassium 99 mg PO DAILY 12/25/21 02/28/2424 History zinc 50 mg PO DAILY 12/25/21 02/28/24 02/29/24 History flash glucose scanning reader #1 ea 01/12/22 01/24/24 02/29/24 Rx (FreeStyle Dannie 2 [place]) AFFLO Vest #1 ea 09/30/22 01/24/24 02/29/24 Rx blood pressure monitor #1 ea 08/26/23 01/24/24 02/29/24 Rx azithromycin 250 mg tablet See Rx Instructions .Route 10/25/23 02/28/24 02/29/24 Rx .COMPLEX #12 ea albuterol sulfate 90 mcg/actuation 2 puff inhalation Q6H PRN 11/12/23 02/28/24 03/01/24 Rx aerosol inhaler (ProAir HFA) shortness of breath or wheezing #8.5 grams flash glucose sensor (FreeStyle #6 ea 01/05/24 01/24/24 02/29/24 Rx Dannie 2 Sensor kit) pantoprazole 40 mg tablet,delayed 40 mg PO BID 6 weeks #84 tabs 01/24/24 02/28/24 03/01/24 Rx release (Protonix) insulin glargine 100 unit/mL (3 See Rx Instructions .Route 02/18/24 02/28/24 02/29/24 Rx mL) subcutaneous pen (Lantus .COMPLEX #15 mL Solostar U-100 Insulin) cetirizine 10 mg tablet 10 mg PO DAILY 02/28/24 02/28/24 02/29/24 History dabigatran etexilate 150 mg 150 mg PO DAILY 02/28/24 02/28/24 02/23/24 History capsule (Pradaxa) diltiazem HCl 120 mg 120 mg PO DAILY 02/28/24 02/28/24 02/29/24 History capsule,extended release 24 hr fluticasone fur. 200 mcg-umeclid 1 inh inhalation DAILY 02/28/24 02/28/24 02/29/24 History 62.5 mcg-vilant 25 mcg inhalat.powder (Trelegy Ellipta) glipizide 5 mg tablet See Rx Instructions .Route 02/28/24 02/28/24 02/29/24 History .COMPLEX PRN Hypertension ipratropium 0.5 mg-albuterol 3 mg See Rx Instructions .Route 02/28/24 02/28/24 03/01/24 History (2.5 mg base)/3 mL nebulization .COMPLEX PRN Shortness Of Breath soln Or Wheezing losartan 25 mg tablet 25 mg PO DAILY 02/28/24 02/28/24 02/29/24 History magnesium 250 mg tablet 250 mg PO DAILY 02/28/24 02/28/24 02/29/24 History triamcinolone acetonide 0.1 % 1 applic topical BID PRN Rash 02/28/24 02/28/24 02/29/24 History topical cream turmeric root extract 500 mg 500 mg PO DAILY 02/28/24 02/28/24 02/29/24 History capsule Allergies Allergy/AdvReac Type Severity Reaction Status Date / Time acetaminophen [From Percocet] Allergy Unknown Unknown Verified 02/28/24 16:27 Cephalosporins Allergy Unknown Unknown Verified 02/28/24 16:27 oxycodone [From Percocet] Allergy Unknown Unknown Verified 02/28/24 16:27 pseudoephedrine Allergy Unknown Unknown Verified 02/28/24 16:27 [From Sudafed] insulin degludec Allergy ADR-Vomitin Verified 02/28/24 16:27 [From Tresiba FlexTouch g U-100] Current Medications Generic Name Dose Route Start Last Admin Trade Name Freq PRN Reason Stop Dose Admin Sodium Chloride 1,000 mls @ 30 mls/hr 03/01/24 09:15 03/01/24 09:43 Sodium Chloride 0.9% IV 03/02/24 09:14 30 mls/hr .Q24H JI Administration PFSH Anesthesia Medical History (Updated 02/15/24 @ 08:55 by Carroll Raygoza DO) Positive colorectal cancer screening using Cologuard test Allergic conjunctivitis Impacted cerumen, left ear Encounter for laboratory test Colon cancer screening Psoriasis of scalp Generalized weakness Bilateral impacted cerumen Exposure to COVID-19 virus Lower respiratory infection UTI symptoms RLS (restless legs syndrome) Vitamin D deficiency Hypertension screen Nicotine addiction Chronic respiratory failure with hypoxia Rheumatoid arthritis GERD (gastroesophageal reflux disease) Mass of upper lobe of left lung Anticoagulation adequate with anticoagulant therapy Pradaxa Obesity Oxygen dependent Tobacco abuse, in remission COPD (chronic obstructive pulmonary disease) HTN (hypertension) Atrial fibrillation Diabetes Surgical History Hx of tracheostomy H/O pneumonectomy [address] Leos Family History Mother Parkinson disease Father Cancer Social History Smoking and tobacco/nicotine status: former use of tobacco/nicotine Quit status (tobacco/nicotine): has quit using Year quit tobacco: 2013 - 2PPD x 45 Years Second hand smoke exposure: No Alcohol intake: never Substance/Drug Use: current Lives independently: Yes Household members: spouse Marital status: service: No Current occupational status: disabled Do you think of yourself as: Straight/Heterosexual Data Anesthesia Cardiac Studies: No Data to Display
--- NOTE | 2024-03-01 10:44 | PM.HP ---
Providers/Chief Complaint Primary Care Provider: LUPE Brewer Chief Complaint: Z12.11 History of Present Illness Gamaliel Sigala is a 69 year old male Review of Systems General: Reports: 10 or more systems reviewed and unremarkable except in HPI and below Medications/Allergies Home Medications Medication Instructions Recorded Confirmed Last Taken Type blood sugar diagnostic #120 ea 12/17/20 01/24/24 02/29/24 Rx pen needle, diabetic 32 gauge x #100 ea 02/06/21 01/24/24 02/29/24 Rx (1st Tier Unifine Pentips) calcium with vit D 1 tab PO DAILY 12/25/21 02/28/24 02/29/24 History cbd gummies 2.5 mg PO BID 12/25/21 02/28/24 02/29/24 History potassium 99 mg PO DAILY 12/25/21 02/28/24 02/29/24 History zinc 50 mg PO DAILY 12/25/21 02/28/24 02/29/24 History flash glucose scanning reader #1 ea 01/12/22 01/24/24 02/29/24 Rx (FreeStyle Dannie 2 [place]) AFFLO Vest #1 ea 09/30/22 01/24/24 02/29/24 Rx blood pressure monitor #1 ea 08/26/23 01/24/24 02/29/24 Rx azithromycin 250 mg tablet See Rx Instructions .Route 10/25/23 02/28/24 02/29/24 Rx .COMPLEX #12 ea albuterol sulfate 90 mcg/actuation 2 puff inhalation Q6H PRN 11/12/23 02/28/24 03/01/24 Rx aerosol inhaler (ProAir HFA) shortness of breath or wheezing #8.5 grams flash glucose sensor (FreeStyle #6 ea 01/05/24 01/24/24 02/29/24 Rx Dannie 2 Sensor kit) pantoprazole 40 mg tablet,delayed 40 mg PO BID 6 weeks #84 tabs 01/24/24 02/28/24 03/01/24 Rx release (Protonix) insulin glargine 100 unit/mL (3 See Rx Instructions .Route 02/18/24 02/28/24 02/29/24 Rx mL) subcutaneous pen (Lantus .COMPLEX #15 mL Solostar U-100 Insulin) cetirizine 10 mg tablet 10 mg PO DAILY 02/28/24 02/28/24 02/29/24 History dabigatran etexilate 150 mg 150 mg PO DAILY 02/28/24 02/28/24 02/23/24 History capsule (Pradaxa) diltiazem HCl 120 mg 120 mg PO DAILY 02/28/24 02/28/24 02/29/24 History capsule,extended release 24 hr fluticasone fur. 200 mcg-umeclid 1 inh inhalation DAILY 02/28/24 02/28/24 02/29/24 History 62.5 mcg-vilant 25 mcg inhalat.powder (Trelegy Ellipta) glipizide 5 mg tablet See Rx Instructions .Route 02/28/24 02/28/24 02/29/24 History .COMPLEX PRN Hypertension ipratropium 0.5 mg-albuterol 3 mg See Rx Instructions .Route 02/28/24 02/28/24 03/01/24 History (2.5 mg base)/3 mL nebulization .COMPLEX PRN Shortness Of Breath soln Or Wheezing losartan 25 mg tablet 25 mg PO DAILY 02/28/24 02/28/24 02/29/24 History magnesium 250 mg tablet 250 mg PO DAILY 02/28/24 02/28/24 02/29/24 History triamcinolone acetonide 0.1 % 1 applic topical BID PRN Rash 02/28/24 02/28/24 02/29/24 History topical cream turmeric root extract 500 mg 500 mg PO DAILY 02/28/24 02/28/24 02/29/24 History capsule Allergies Allergy/AdvReac Type Severity Reaction Status Date / Time acetaminophen [From Percocet] Allergy Unknown Unknown Verified 02/28/24 16:27 Cephalosporins Allergy Unknown Unknown Verified 02/28/24 16:27 oxycodone [From Percocet] Allergy Unknown Unknown Verified 02/28/24 16:27 pseudoephedrine Allergy Unknown Unknown Verified 02/28/24 16:27 [From Sudafed] insulin degludec Allergy ADR-Vomitin Verified 02/28/24 16:27 [From Tresiba FlexTouch g U-100] PFSH Acute PFSH: Medical History (Updated 02/15/24 @ 08:55 by Carroll Raygoza DO) Positive colorectal cancer screening using Cologuard test Allergic conjunctivitis Impacted cerumen, left ear Encounter for laboratory test Colon cancer screening Psoriasis of scalp Generalized weakness Bilateral impacted cerumen Exposure to COVID-19 virus Lower respiratory infection UTI symptoms RLS (restless legs syndrome) Vitamin D deficiency Hypertension screen Nicotine addiction Chronic respiratory failure with hypoxia Rheumatoid arthritis GERD (gastroesophageal reflux disease) Mass of upper lobe of left lung Anticoagulation adequate with anticoagulant therapy Pradaxa Obesity Oxygen dependent Tobacco abuse, in remission COPD (chronic obstructive pulmonary disease) HTN (hypertension) Atrial fibrillation Diabetes Surgical History Hx of tracheostomy H/O pneumonectomy [address] Leos Family History Mother Parkinson disease Father Cancer Social History Smoking and tobacco/nicotine status: former use of tobacco/nicotine Quit status (tobacco/nicotine): has quit using Year quit tobacco: 2013 - 2PPD x 45 Years Second hand smoke exposure: No Alcohol intake: never Substance/Drug Use: current Lives independently: Yes Household members: spouse Marital status: service: No Current occupational status: disabled Do you think of yourself as: Straight/Heterosexual Vitals/I&O/Wt Last Vital Signs Temp 97.5 F L 03/01/24 09:24 Pulse 95 03/01/24 09:24 Resp 18 03/01/24 09:24 BP 176/103 03/01/24 09:24 Pulse Ox 95 03/01/24 09:24 O2 Del Method Nasal Cannula 03/01/24 09:24 O2 Flow Rate 3 03/01/24 09:24 Weight last 48 hrs Weight 207 lb A&P Assessment and plan (1) GERD (gastroesophageal reflux disease): (2) Positive colorectal cancer screening using Cologuard test: (3) Colon cancer screening: (4) Chronic idiopathic constipation: Plan EGD and colonoscopy Attestations Medical Necessity Statement*: Home Coding Level of Care Code Acute Code for Chg Fwd Diagnoses GERD (gastroesophageal reflux disease) K21.9 Positive colorectal cancer screening using Cologuard test R19.5 Colon cancer screening Z12.11 Chronic idiopathic constipation K59.04
--- NOTE | 2024-03-01 10:47 | ECG_ITS ---
[facility] Date: 2024-03-01 Pat Name: Gamaliel Sigala Department: Room: Gender: Male [employer]: : 1955 Requested By: Jorge L Guevara Order Number: [id number] Juaquin MD: Maged Parrish M.D. Measurements Intervals [place] Rate: 82 P: 73 AK: 177 QRS: 57 QRSD: 113 T: 63 QT: 373 QTc: 436 Interpretive Statements SINUS RHYTHM MODERATE INTRAVENTRICULAR CONDUCTION DELAY [110+ ms QRS DURATION] Compared to ECG 03/04/2023 14:09:17 No significant changes Electronically Signed On 03-01-2024 16:42:52 CDT by Maged Parrish M.D. [email or web address]
--- NOTE | 2024-03-01 11:34 | SUR.PREOP ---
Case cancelled per anesthesia. Pt needs cleared by advanced developer prior to procedure.
== END 2024-03-01 11:10 | disposition home or self-care (01) ==
PROVIDERS: PCP Nurse Practitioner Family; Visit Provider Surgery
PROC: 0DJ08ZZ Inspection of Upper Intestinal Tract, Via Natural or Artificial Opening Endoscopic (ICD-10-PCS; CPT 43235; principal; 2024-03-01 10:15)
PROC: 0DJD8ZZ Inspection of Lower Intestinal Tract, Via Natural or Artificial Opening Endoscopic (ICD-10-PCS; CPT 45378; 2024-03-01 10:15)
DX: Z53.8 Procedure and treatment not carried out for other reasons (principal); K59.04 Chronic idiopathic constipation; K21.9 Gastro-esophageal reflux disease without esophagitis; Z79.4 Long term (current) use of insulin; E66.9 Obesity, unspecified; Z68.28 Body mass index [BMI] 28.0-28.9, adult; Z99.81 Dependence on supplemental oxygen; J44.9 Chronic obstructive pulmonary disease, unspecified; I10 Essential (primary) hypertension; I48.91 Unspecified atrial fibrillation; E11.9 Type 2 diabetes mellitus without complications; Z87.891 Personal history of nicotine dependence
CPT/HCPCS: 36416; 82962; 93005; J7030

== ENCOUNTER → 2024-03-22 12:17 | Outpatient (BNVA) | payer MEDICARE, SELFPAY | PROVIDERS: PCP Nurse Practitioner Family; Visit Provider Internal Medicine Cardiovascular Disease | DX: Z01.818 Encounter for other preprocedural examination (principal); I48.20 Chronic atrial fibrillation, unspecified; J44.9 Chronic obstructive pulmonary disease, unspecified; I10 Essential (primary) hypertension; Z87.891 Personal history of nicotine dependence | CPT/HCPCS: 99214 ==

== ENCOUNTER → 2024-04-18 07:30 | Outpatient (BNVA) | payer MEDICARE, SELFPAY | PROVIDERS: PCP Nurse Practitioner Family; Visit Provider Internal Medicine | DX: Z53.9 Procedure and treatment not carried out, unspecified reason (principal) | CPT/HCPCS: 99213 ==

== ENCOUNTER → 2024-11-28 15:02 | Outpatient (BNVA) | payer MEDICARE, SELFPAY | PROVIDERS: PCP Nurse Practitioner Family; Visit Provider Internal Medicine | DX: E11.9 Type 2 diabetes mellitus without complications (principal); Z79.4 Long term (current) use of insulin; J15.9 Unspecified bacterial pneumonia; E78.2 Mixed hyperlipidemia; I10 Essential (primary) hypertension; Z09 Encounter for follow-up examination after completed treatment for conditions other than malignant neoplasm; Z12.5 Encounter for screening for malignant neoplasm of prostate; L40.9 Psoriasis, unspecified | CPT/HCPCS: 80053; 80061; 82306; 83036; G0103 ==

== ENCOUNTER → 2024-11-29 10:46 | Outpatient (BNVA) | payer MEDICARE, SELFPAY | PROVIDERS: PCP Nurse Practitioner Family; Visit Provider Internal Medicine | DX: E11.9 Type 2 diabetes mellitus without complications (principal); Z79.4 Long term (current) use of insulin; E27.8 Other specified disorders of adrenal gland; E16.0 Drug-induced hypoglycemia without coma; T38.3X5A Adverse effect of insulin and oral hypoglycemic [antidiabetic] drugs, initial encounter; E27.9 Disorder of adrenal gland, unspecified | CPT/HCPCS: 99214 ==

== ENCOUNTER 2025-01-17 11:39 | Outpatient (CLI) | payer MEDICARE, MEDICAID, SELFPAY ==
--- NOTE | 2025-01-17 11:44 | CT_ITS ---
WS: [id number] CT chest w con* [id number] HISTORY: Needs done in AM prior to f/u appt TECHNIQUE: Axial imaging performed through the thorax. Coronal and sagittal reformats are submitted. All CT scans at [facility] use at least one of these dose optimization techniques: automated exposure control; mA and/or kV adjustment per patient size (includes targeted exams where dose is matched to clinical indication); or iterative reconstruction. CONTRAST: Omnipaque 350; 100 mL IV. DLP: 528.96 mGy.cm COMPARISON: 09/14/2022 Lungs and central airway: Advanced biapical pleural thickening and fibrosis with scarring, bronchiectasis and tethering. Bullous lung disease. Mild bronchial wall thickening in the periphery lower lungs but greatest on the RIGHT. Irregular pleural opacifications along the RIGHT diaphragmatic surface are unchanged. No mass or nodule. Pleura: New small LEFT pleural effusion. Heart and pericardium: Normal size heart with no pericardial effusion. Mediastinum and rosaura: No mediastinum or hilar adenopathy. Vessels: Mild atherosclerosis aorta. Normal size pulmonary artery. Chest wall and lower neck: No soft tissue masses. Upper abdomen: Cholelithiasis without acute cholecystitis. No adrenal mass. Advanced atherosclerotic plaque in the suprarenal aorta and mesenteric arteries. Osseous structures: Osteopenia. Large bridging osteophytes along the RIGHT lateral mid thoracic spine. Deformity of the sternum is consistent with a prior healed fracture. CT/CT chest w con* [id number] IMPRESSION: 1. 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 2. No new mass or nodule. Patient has known, previously described areas of sub pleural thickening and nodularity at the lung bases. 3. No pathologically enlarged lymph nodes. 4. New small LEFT pleural effusion. 5. Cholelithiasis without acute cholecystitis. 6. Atherosclerosis aorta and suprarenal abdominal aorta. Dense calcification i n the mesenteric arteries.
[2025-01-17] MEDS: iohexol 350 mg/mL 500 mL Btl (per mL) IV (12:10)
== END 2025-01-17 11:40 | disposition home or self-care (01) ==
LOC: RAD 11:40
PROVIDERS: PCP Nurse Practitioner Family; Visit Provider Internal Medicine
DX: R91.1 Solitary pulmonary nodule (principal); J44.9 Chronic obstructive pulmonary disease, unspecified; J96.11 Chronic respiratory failure with hypoxia; J90 Pleural effusion, not elsewhere classified; Z99.81 Dependence on supplemental oxygen; Z87.891 Personal history of nicotine dependence
CPT/HCPCS: 71260; 99205; Q3014

== ENCOUNTER 2025-01-25 09:30 | Outpatient (CLI) | payer MEDICARE, MEDICAID, SELFPAY | END 2025-01-25 09:31 | disposition home or self-care (01) | LOC: RAD 09:32 | PROVIDERS: PCP Nurse Practitioner Family; Visit Provider Internal Medicine | DX: R06.02 Shortness of breath (principal) | CPT/HCPCS: 93306 ==